=== PATIENT | female | born 1955 | race Caucasian/White ===

== ENCOUNTER → 2019-03-31 08:35 | Outpatient (BNVA) | payer MEDICARE, MEDICAID, SELFPAY | PROVIDERS: Family Provider Family Medicine; Visit Provider Psychiatry & Neurology Psychiatry | DX: F41.0 Panic disorder [episodic paroxysmal anxiety] (principal); F33.42 Major depressive disorder, recurrent, in full remission; F17.210 Nicotine dependence, cigarettes, uncomplicated | CPT/HCPCS: 99213 ==

== ENCOUNTER 2019-05-27 06:00 | Outpatient (CLI) | payer MEDICARE, MEDICAID, SELFPAY ==
--- NOTE | 2019-05-29 12:03 | ONC CON_ITS ---
Dr. Knight New Patient Note Patient: Lisa Nick Unit #: [id number]: 1955 Dicatated By: Bubba Knight M.D.Date of Visit: May 27, 2019 Onc MED New Patient/Consult Referring Physician: Dr. Jordan Cedillo M.D. Chief Complaint: Thick blood. History of Present Illness: This is a 63 year-old woman with elevated hemoglobin/hematocrit levels. She has multiple medical illnesses including hypertension, hyperlipidemia, type 2 diabetes, chronic kidney disease, COPD, GERD, obstructive sleep apnea, chronic migraine, and chronic anxiety. She also has degenerative arthritis and fibromyalgia with chronic pain. She has been seeing Dr. Cedillo for primary care. At her follow-up visit with Dr. Cedillo on 02/11/2019 her CBC showed significantly elevated hemoglobin at 16.6 g with hematocrit 52.3%. The white blood cell count was 9500. The platelet count was in the upper normal range at 404,000. The differential showed 56% neutrophils, 32% lymphocytes, 8% monocytes, 3% eosinophils, and 1% basophils. Her comprehensive metabolic profile showed BUN 15 and creatinine 0.79 mg/dL and total bilirubin 0.2 mg/dL. The SGOT and SGPT were borderline high at 33 and 34 U/L respectively, and the alkaline phosphatase was slightly elevated at 132/104 U/L. Her further laboratory studies on 05/13/2019 included an erythropoietin level in the upper normal range at 17.3 mIU/mL. She says that she has not been feeling very good. She complains that she hurts all the time. For the past 6 months or so she has been having episodes of pain in the upper chest which she says feels like someone sitting on her chest. The pain tends to radiate to the shoulders and sometimes down the left arm. She says her left arm sometimes goes numb. The pain is not necessarily associated with activity. It is sometimes preceded by profuse sweating. He says that for the past 3 to 4 months she has been getting sweats all the time, both during the daytime and at night. She has not had fever. She has limited activity due to shortness of breath and weakness, but she is able to do light work at home. Her ECOG score is 1. She has good appetite. Her weight has been stable. She has shortness of breath and she has nonproductive cough. She has nausea with more severe migraines. Her acid reflux is adequately managed with Nexium. Bowel function has been okay. She had a colonoscopy 6 years ago. She has frequent urination. She has generalized musculoskeletal pain including the neck and shoulders, her entire back, her hands, her legs, and the bottoms of her feet. She has migraines at least 2-3 times a week. She also gets dizzy/lightheaded with the more severe headaches. She has numbness in her hands and arms. She has chronic anxiety. Past Medical History: Her medical history includes anxiety, cervical radiculopathy, chronic kidney disease (stage III), chronic migraine, chronic obstructive pulmonary disease, chronic pain syndrome, degenerative disease of the spine, fibromyalgia, gastroesophageal reflux disease, hyperlipidemia, hypothyroidism, macular degeneration, obstructive sleep apnea, osteopenia, renal hypertension, and type II diabetes. Past Surgical History: Her surgical/procedural history includes bilateral cataract excisions in 2017, right total knee arthroplasty in 2013, laser eye surgery in 2009, cholecystectomy in 1985, completion hysterectomy in 1983, and appendectomy/right oophorectomy in 1972. Medications: Acetaminophen-Codeine 1 (300-15 mg) Tablet Oral t.i.d., clonazePAM 1 (0.5 mg) Tablet Oral b.i.d., Cymbalta 1 (60 mg) Capsule Delayed Release Particles Oral b.i.d., Empagliflozin 1 (10 mg) Tablet Oral daily, Glimepiride 1 (4 mg) Tablet Oral b.i.d., Ibuprofen (800 mg) Tablet Oral t.i.d., Methocarbamol (750 mg) Tablet Oral t.i.d., Propranolol HCl (60 mg) Tablet Oral b.i.d. Allergies: Abilify, Amitriptyline HCl, Baclofen, Doxycycline Hyclate, Ketorolac Tromethamine, Lyrica, Naproxen Sodium, Percocet, and TEGretol. Social History: Ms. Nick is . She is a daily smoker. She is a former drinker. She is a retired RN. She has smoked since age 9, up to 1 pack of cigarettes daily. She cut down a few years ago and she currently smokes 1/2 pack per day. She has had some alcohol use in the past, but never heavy. She quit drinking more than 20 years ago. Family History: Father of lung cancer at age 72. Mother of neuroendocrine lung cancer at age 68. Her mother also had heart disease and both had diabetes. A brother in an accident at age 42. One other brother is still living and has known cerebral aneurysm. Review Of Symptoms: Constitutional - Her energy level is overall okay, but she she tried easily. She is able to do light housework and she does some exercises as well as dancing. Appetite is good and weight is stable. No fever or chills. She has hot flashes. She has frequent sweating episodes that happen during the day and night. She states this has been present for 3 months. ECOG score is 0, Eyes - She has macular degeneration. She has lost vision in her right eye and she says the left eye vision is getting worse, ENMT - No sinus congestion/drainage. She has a sore mouth and sore throat. No difficulty swallowing, Hematologic/Lymphatic - She bruises easily, Respiratory - She has shortness of breath with activity. She has a dry cough. No pleuritic pain or hemoptysis, Cardiovascular - She has pain in the upper chest which feels like someone is sitting on her chest. Pain sometimes goes to her shoulders and sometimes down her left arm. No palpitations, Gastrointestinal - She has some nausea that's typically associated with her migraines. No vomiting. She has heartburn that is well controlled with Nexium. No diarrhea or constipation. No blood in the stool or black stools, Genitourinary (F) - No dysuria or hematuria. She has urinary frequency. No urgency or incontinence, Musculoskeletal - She has pain in her chest wall which is chronic for her. She was evaluated for this recently, diagnosed with intercostal pain. She is taking 800mg Ibuprofen which helps. She also has chronic arthritic pain in her knees, shoulder, hands, neck and back, Integumentary - No skin complications, Neurologic - She has migraine headaches 2-3 times weekly that's accompanied by dizziness and photophobia. She has numbness and tingling in her hands and armsthat is constant, Psychiatric - She has constant anxiety and depression that is related to her chronic pain and activity restrictions. She is sleeping OK. Vital Signs: Performed on May 27, 2019 09:26: 8, 37.20 (HIGH), 1.97 sq.m, 63 in, 95 % (LOW), 73 /min, 18 /min, 158/90 mm(hg) (HIGH), 97.6 F (LOW), and 210 lbs (HIGH). Physical Examination: Constitutional - She does not appear acutely ill. She has limited mobility, Eyes - Sclerae nonicteric. Conjunctivae clear, ENMT - Mouth is dry. There are no other lesions noted in the oral cavity, Neck - No mass or thyromegaly, Hematologic/Lymphatic - No cervical, clavicular, or axillary adenopathy, Respiratory - Lungs show diminished air movement and slightly coarse breath sounds bilaterally. There is some slight expiratory wheezing anteriorly, Cardiovascular - Heart rhythm is regular. There is no murmur, gallop, or rub noted, Chest - There is significant chest wall tenderness in the sternal area, Abdomen - Distended. Liver and spleen are not enlarged. There is no abdominal mass or ascites noted and there is no inguinal adenopathy, Back/Spine - There is tenderness in the neck and down the entire spine, Extremities - No edema. Dorsalis pedis pulses are palpable bilaterally, Integumentary - No rashes. No suspicious skin lesions noted, Neurologic - No focal neurologic deficits noted. Impression: 1. Patient with elevated hemoglobin/hematocrit levels. This is most likely secondary polycythemia due to smoking/COPD. 2. She has shortness of breath and weakness, and she also has been having frequent diaphoresis and episodes of chest pain. It is uncertain to what extent any of this may be due to the elevated blood count. Her other medical illnesses include: 3. Hypertension. 4. Hyperlipidemia. 5. Type 2 diabetes. 6. Chronic kidney disease. 7. GERD. 8. Hypothyroidism. 9. Osteopenia. 10. Obstructive sleep apnea. 11. Degenerative arthritis/degenerative disease of the spine and fibromyalgia. She has associated chronic pain syndrome. 12. Chronic migraine. 13. Macular degeneration. 14. Chronic anxiety. Plan: The laboratory findings were reviewed with the patient. We discussed the clinical implications. The probability is very high that she has secondary polycythemia. It is uncertain to what extent it may be symptomatic, but with her hematocrit level greater than 50%, it would be reasonable to give her a trial of phlebotomy to see if she may have symptomatic benefit. I would first like to repeat her CBC and also check a JAK2 gene mutation study. If that is confirmed to be negative, I will arrange for her to start phlebotomies on a trial basis. I will tentatively plan a follow-up visit in 1 month. We also discussed the fact that it is imperative for her to stop smoking. She indicates that she is willing to try nicotine patch, I will see if I can get that available for her. Signed By: Bubba Knight M.D. <<Signature on File>>
== END 2019-05-27 06:01 | disposition home or self-care (01) ==
LOC: ONCMED 11:45
PROVIDERS: Family Provider Family Medicine; Referring Provider Family Medicine; Visit Provider Internal Medicine Medical Oncology
DX: D75.1 Secondary polycythemia (principal); E11.22 Type 2 diabetes mellitus with diabetic chronic kidney disease; I12.9 Hypertensive chronic kidney disease with stage 1 through stage 4 chronic kidney disease, or unspecified chronic kidney disease; N18.3 Chronic kidney disease, stage 3 (moderate); E78.5 Hyperlipidemia, unspecified; J44.9 Chronic obstructive pulmonary disease, unspecified; K21.9 Gastro-esophageal reflux disease without esophagitis; G47.33 Obstructive sleep apnea (adult) (pediatric); G43.709 Chronic migraine without aura, not intractable, without status migrainosus; F41.9 Anxiety disorder, unspecified; M19.90 Unspecified osteoarthritis, unspecified site; M79.7 Fibromyalgia; M54.12 Radiculopathy, cervical region; G89.4 Chronic pain syndrome; E03.9 Hypothyroidism, unspecified; H35.30 Unspecified macular degeneration; F17.210 Nicotine dependence, cigarettes, uncomplicated; Z79.84 Long term (current) use of oral hypoglycemic drugs; Z96.651 Presence of right artificial knee joint
CPT/HCPCS: 99205

== ENCOUNTER 2019-06-19 11:25 | Outpatient (CLI) | payer MEDICARE, MEDICAID, SELFPAY ==
[2019-06-19 14:57] LABS: Basophils # 0.1 10^3/uL (0.0-0.1); Basophils % 0.6 %; Eosinophils # 0.3 10^3/uL (0.0-0.8); Eosinophils % 2.4 %; Hematocrit 48.4 % (37.0-47.0); Hemoglobin 15.2 g/dL (11.5-15.3); Lymphocytes # 3.8 10^3/uL (0.8-4.8); Lymphocytes % 35.3 %; Mean Corpuscular HGB Conc 31.4 g/dL (30.0-36.0); Mean Corpuscular Hemoglobin 29.3 pg (28.0-34.0); Mean Corpuscular Volume 93.3 fL (81-99); Mean Platelet Volume 9.6 fL (7.4-10.4); Monocytes # 0.8 10^3/uL (0.2-0.9); Monocytes % 7.5 %; Neutrophils # 5.7 10^3/uL (1.8-7.7); Neutrophils % 52.9 %; Nucleated Red Blood Cells % 0 %; Platelet Count 398 10^3/cmm (130-400); Red Blood Count 5.19 10^6/uL (4.1-5.3); White Blood Count 10.7 10^3/uL (4.0-10.0)
== END 2019-06-19 11:26 | disposition home or self-care (01) ==
LOC: ONCMED 15:29
PROVIDERS: Family Provider Family Medicine; PCP Family Medicine; Visit Provider Internal Medicine Medical Oncology
DX: D75.1 Secondary polycythemia (principal)
CPT/HCPCS: 36415; 85025

== ENCOUNTER 2019-06-20 06:52 | Outpatient (CLI) | payer MEDICARE, MEDICAID, SELFPAY ==
--- NOTE | 2019-06-20 14:43 | ONC FU_ITS ---
Dr. Knight Patient Follow-Up Note Patient: Lisa Nick Unit #: [id number]: 1955 Dicatated By: Bubba Knight M.D.Date of Visit:Jun 20, 2019 Onc Med Follow-up/Prog Note Chief Complaint: Polycythemia. History of Present Illness: This is a 63 year-old woman with secondary polycythemia. At her follow-up visit with Dr. Cedillo on 02/11/2019 her CBC showed significantly elevated hemoglobin at 16.6 g with hematocrit 52.3%. The white blood cell count was 9500. The platelet count was in the upper normal range at 404,000. The differential showed 56% neutrophils, 32% lymphocytes, 8% monocytes, 3% eosinophils, and 1% basophils. Her comprehensive metabolic profile showed BUN 15 and creatinine 0.79 mg/dL and total bilirubin 0.2 mg/dL. The SGOT and SGPT were borderline high at 33 and 34 U/L respectively, and the alkaline phosphatase was slightly elevated at 132/104 U/L. Her further laboratory studies on 05/13/2019 included an erythropoietin level in the upper normal range at 17.3 mIU/mL. I had seen her initially on 05/27/2019. Her repeat CBC at that time showed just mildly elevated hemoglobin/hematocrit levels at 13.0 g and 48.5%. The white blood cell count was 9900. The platelet count was 378,000. Comprehensive metabolic profile again showed slightly elevated liver enzymes. LDH was normal at 180 U/L. The JAK2 V617F and the JAK2 exon 12 mutations were not identified. Her other medical illnesses include hypertension, hyperlipidemia, type 2 diabetes, chronic kidney disease, COPD, GERD, hypothyroidism, obstructive sleep apnea, osteopenia, macular degeneration, chronic migraine, and chronic anxiety. She also has degenerative arthritis and fibromyalgia with chronic pain. She has a history of smoking since age 9, up to 1 pack of cigarettes daily. She had cut down a few years ago, to 1/2 pack/day. She is trying to quit. She is seen for a follow-up visit by telehealth. She has been feeling better generally since my visit with her last month. She has not had good energy, but there has been some improvement in her activity tolerance. She has been doing light work and she has been exercising some. Her appetite is good. She has not had fever. She does report having a lot of sweating. She had seen Dr. Cedillo yesterday, and she is now getting treatment for thrush. She has some shortness of breath, but her breathing lately has been pretty good. She has nonproductive cough. She does not complain of chest pain. Her acid reflux is managed adequately with Nexium. She has no other GI or complaints. Her pain is about the same. She has headaches. She sometimes has dizziness. She has numbness in her arms and hands. She is seeing a neurologist. Medications: Acetaminophen-Codeine 1 (300-15 mg) Tablet Oral t.i.d., clonazePAM 1 (0.5 mg) Tablet Oral b.i.d., Cymbalta 1 (60 mg) Capsule Delayed Release Particles Oral b.i.d., Empagliflozin 1 (10 mg) Tablet Oral daily, Glimepiride 1 (4 mg) Tablet Oral b.i.d., Ibuprofen (800 mg) Tablet Oral t.i.d., Methocarbamol (750 mg) Tablet Oral t.i.d., Propranolol HCl (60 mg) Tablet Oral b.i.d. Allergies: Abilify, Amitriptyline HCl, Baclofen, Doxycycline Hyclate, Ketorolac Tromethamine, Lyrica, Naproxen Sodium, Percocet, and TEGretol. Review of Systems: Constitutional - She is feeling somewhat better, but still having low energy. She is able to do light housework. Her appetite is good and weight is stable. No fever or chills. She has a lot of sweating. ECOG score is 1, ENMT - She has sinus congestion/drainage. She has a sore mouth and throat. She was evaluated by Dr. Cedillo yesterday and she is being treated for thrush. No difficulty swallowing, Hematologic/Lymphatic - She bruises easily, Respiratory - She has some shortness of breath, but her breathing lately has been pretty good. She has a dry cough. No pleuritic pain or hemoptysis, Cardiovascular - No angina pain. No palpitations, Gastrointestinal - No nausea or vomiting. She has heartburn with acid reflux that is adequately managed with Nexium. No diarrhea or constipation. No blood in the stool or black stools, Genitourinary (F) - No dysuria or hematuria. No urinary frequency. No urgency or incontinence, Musculoskeletal - She has back and she has a lot of arthritis. She is managing it with Tylenol #3 and ibuprofen, Integumentary - No skin complications, Neurologic - She has chronic migraines. She has dizziness. She has persistant numbness and tingling in her arms and hands. She is seeing Dr. Malcolm with Neurology for this, Psychiatric - No anxiety or depression. No insomnia. Physical Examination: Constitutional - She does not appear acutely ill. Lab/Imaging: Her CBC from 06/19/2019 showed hemoglobin 15.2 g and hematocrit 48.4%. The white blood cell count was 10,700 and the platelet count was 398,000. Impression: 1. Patient with elevated hemoglobin/hematocrit levels. Her laboratory studies and clinical findings are consistent with secondary polycythemia. 2. During followup her blood counts have been just borderline high, and thus far phlebotomy has not been indicated. Her other medical illnesses include: 3. Hypertension. 4. Hyperlipidemia. 5. Type 2 diabetes. 6. Chronic kidney disease. 7. GERD. 8. Hypothyroidism. 9. Osteopenia. 10. Obstructive sleep apnea. 11. Degenerative arthritis/degenerative disease of the spine and fibromyalgia. She has associated chronic pain syndrome. 12. Chronic migraine. 13. Macular degeneration. 14. Chronic anxiety. Plan: As her recent blood counts have been stable, she can just be followed on observation/expectant management. I again emphasized how important it is for her to stop smoking. She will continue her regular follow-up with Dr. Cedillo. I will see her again in 6 months. Signed By: Bubba Knight M.D. <<Signature on File>>
== END 2019-06-20 06:53 | disposition home or self-care (01) ==
LOC: ONCMED 06:54
PROVIDERS: Family Provider Family Medicine; PCP Family Medicine; Visit Provider Internal Medicine Medical Oncology
DX: D75.1 Secondary polycythemia (principal); E11.22 Type 2 diabetes mellitus with diabetic chronic kidney disease; I12.9 Hypertensive chronic kidney disease with stage 1 through stage 4 chronic kidney disease, or unspecified chronic kidney disease; N18.9 Chronic kidney disease, unspecified; E78.5 Hyperlipidemia, unspecified; J44.9 Chronic obstructive pulmonary disease, unspecified; K21.9 Gastro-esophageal reflux disease without esophagitis; E03.9 Hypothyroidism, unspecified; G47.33 Obstructive sleep apnea (adult) (pediatric); M85.80 Other specified disorders of bone density and structure, unspecified site; H35.30 Unspecified macular degeneration; G43.709 Chronic migraine without aura, not intractable, without status migrainosus; F41.9 Anxiety disorder, unspecified; M19.90 Unspecified osteoarthritis, unspecified site; M79.7 Fibromyalgia; G89.29 Other chronic pain; F17.210 Nicotine dependence, cigarettes, uncomplicated; Z79.899 Other long term (current) drug therapy; Z79.84 Long term (current) use of oral hypoglycemic drugs
CPT/HCPCS: 99214

== ENCOUNTER → 2019-06-27 07:32 | Outpatient (BNVA) | payer MEDICARE, MEDICAID, SELFPAY | PROVIDERS: Family Provider Family Medicine; PCP Family Medicine; Visit Provider Psychiatry & Neurology Psychiatry | DX: F41.0 Panic disorder [episodic paroxysmal anxiety] (principal); F33.42 Major depressive disorder, recurrent, in full remission; F17.210 Nicotine dependence, cigarettes, uncomplicated | CPT/HCPCS: 99213 ==

== ENCOUNTER → 2019-09-19 09:00 | Outpatient (BNVA) | payer MEDICARE, MEDICAID, SELFPAY | PROVIDERS: Family Provider Family Medicine; PCP Family Medicine; Visit Provider Psychiatry & Neurology Psychiatry | DX: F33.42 Major depressive disorder, recurrent, in full remission (principal); F41.0 Panic disorder [episodic paroxysmal anxiety] | CPT/HCPCS: 99213 ==

== ENCOUNTER → 2019-12-12 07:37 | Outpatient (BNVA) | payer MEDICARE, MEDICAID, SELFPAY | PROVIDERS: Family Provider Family Medicine; PCP Family Medicine; Visit Provider Psychiatry & Neurology Psychiatry | DX: F33.42 Major depressive disorder, recurrent, in full remission (principal); F41.0 Panic disorder [episodic paroxysmal anxiety]; F17.210 Nicotine dependence, cigarettes, uncomplicated | CPT/HCPCS: 99213 ==

== ENCOUNTER 2019-12-30 09:14 | Outpatient (CLI) | payer MEDICARE, MEDICAID, SELFPAY ==
--- NOTE | 2020-01-02 17:21 | ONC FU_ITS ---
Dr. Knight Patient Follow-Up Note Patient: Lisa Nick Unit #: [id number]: 1955 Dicatated By: Bubba Knight M.D.Date of Visit:Dec 30, 2019 Onc Med Follow-up/Prog Note Chief Complaint: Polycythemia. History of Present Illness: This is a 64 year-old woman with secondary polycythemia. At her follow-up visit with Dr. Cedillo on 02/11/2019 her CBC showed significantly elevated hemoglobin at 16.6 g with hematocrit 52.3%. The white blood cell count was 9500. The platelet count was in the upper normal range at 404,000. The differential showed 56% neutrophils, 32% lymphocytes, 8% monocytes, 3% eosinophils, and 1% basophils. Her comprehensive metabolic profile showed BUN 15 and creatinine 0.79 mg/dL and total bilirubin 0.2 mg/dL. The SGOT and SGPT were borderline high at 33 and 34 U/L respectively, and the alkaline phosphatase was slightly elevated at 132/104 U/L. Her further laboratory studies on 05/13/2019 included an erythropoietin level in the upper normal range at 17.3 mIU/mL. I had seen her initially on 05/27/2019. Her repeat CBC at that time showed just mildly elevated hemoglobin/hematocrit levels at 13.0 g and 48.5%. The white blood cell count was 9900. The platelet count was 378,000. Comprehensive metabolic profile again showed slightly elevated liver enzymes. LDH was normal at 180 U/L. The JAK2 V617F and the JAK2 exon 12 mutations were not identified. As her evaluation was consistent with secondary polycythemia and her blood counts were just mildly elevated, I had just recommended observation/expectant management along with smoking cessation. Her other medical illnesses include hypertension, hyperlipidemia, type 2 diabetes, chronic kidney disease, COPD, GERD, hypothyroidism, obstructive sleep apnea, osteopenia, macular degeneration, chronic migraine, and chronic anxiety. She also has degenerative arthritis and fibromyalgia with chronic pain. She has a history of smoking since age 9, up to 1 pack of cigarettes daily. She had cut down a few years ago, to 1/2 pack/day. She is seen for a follow-up visit. She has not been feeling very good generally. She thinks she has been dehydrated, though she has been drinking a lot of water. Her energy is not been too good, but she is able to do light work. ECOG score is 1. She has good appetite. She has not had fever. She sometimes has sweating when her blood sugar is high. She occasionally has sore throat. She has nonproductive cough. She has shortness of breath, and she thinks her breathing is getting worse. She has now cut down to just 5 cigarettes/day. She has had a lot of soreness and pain across her chest, but that does seem to be positional. She has occasional nausea. Her acid reflux is adequately managed with Nexium. Bowel and bladder function have been okay. She complains that she hurts constantly, mainly in the knees and shoulders. She also has pain in her neck and back. She has migraine headaches. She sometimes has lightheadedness. She has numbness/tingling in her arms and hands. Medications: Acetaminophen-Codeine 1 (300-15 mg) Tablet Oral t.i.d., clonazePAM 1 (0.5 mg) Tablet Oral b.i.d., Cymbalta 1 (60 mg) Capsule Delayed Release Particles Oral b.i.d., Empagliflozin 1 (10 mg) Tablet Oral daily, Glimepiride 1 (4 mg) Tablet Oral b.i.d., Ibuprofen (800 mg) Tablet Oral t.i.d., Methocarbamol (750 mg) Tablet Oral t.i.d., Propranolol HCl (60 mg) Tablet Oral b.i.d. Allergies: Abilify, Amitriptyline HCl, Baclofen, Doxycycline Hyclate, Ketorolac Tromethamine, Lyrica, Naproxen Sodium, Percocet, and TEGretol. Review of Systems: Constitutional - Her energy is low. She has been doing some light exercising. She is able to do light housework. Her appetite is good and her weight is up about 10 pounds. No fever, night sweats, or hot flashes. ECOG score is 1, ENMT - No sinus congestion/drainage. She has dry mouth. She sometimes has sore throat. No difficulty swallowing, Hematologic/Lymphatic - She has easy bruising, Respiratory - She has shortness of breath, and she feels that her breathing is getting worse. She has a non-productive cough. She is down to smoking 5-6 cigarettes a day. No pleuritic pain or hemoptysis, Cardiovascular - She has intermittent chest pain. It tends to be positional. No palpitations, Gastrointestinal - She sometimes has nausea after meals. No vomiting. Her heartburn is poorly controlled with Nexium. No diarrhea or constipation. No blood in the stool or black stools, Genitourinary (F) - No dysuria or hematuria. No urinary frequency. No urgency or incontinence, Musculoskeletal - She has constant arthritis pain in her knees ans shoulders. She also has neck and back pain, Integumentary - No skin complications, Neurologic - She has migraine headaches. She has lightheadedness. She has numbness and tingling in her left arm and hand. No other focal neurologic symptoms, Psychiatric - She has anxiety. No depression. No insomnia. Vital Signs: Performed on Dec 30, 2019 09:16 Height - 63.00 in Weight - 220 lbs (HIGH) BSA - 2.01 sq.m BMI - 38.97 (HIGH) Temperature - 98.8 F Pulse - 88 /min Respiration - 17 /min BP - 136/68 mm(hg) O2 Sat - 97 % Pain - 7 Physical Examination: Constitutional - She looks pretty good generally, Eyes - Sclerae nonicteric. Conjunctivae clear, ENMT - Mouth is very dry. There are no lesions noted in the oral cavity, Hematologic/Lymphatic - No cervical, clavicular, or axillary adenopathy, Respiratory - Lungs show diminished air movement bilaterally. There is slight wheezing anteriorly, Cardiovascular - Heart rhythm is regular. There is no murmur, gallop, or rub noted, Abdomen - Soft. Liver and spleen are not enlarged. There is no abdominal mass or ascites noted and there is no inguinal adenopathy, Extremities - No edema, Neurologic - No focal neurologic deficits noted. Lab/Imaging: Test performed on Dec 03, 2019 09:13 TSH 2.95 uU/mL C-Reactive Protein (mg/L) 13.0 mg/L Glucose 101 mg/dL BUN 14 mg/dL Creatinine 0.84 mg/dL Cr Clearance (Est) 106.59 mL/min Sodium 134 mmol/L Potassium 5.0 mmol/L Chloride 99 mmol/L CO2 25 mmol/L Calcium 9.6 mg/dL Protein, Total 6.5 g/dL Albumin 4.3 g/dL Bilirubin, Total 0.2 mg/dL Alkaline Phosphatase 106 IU/L AST (SGOT) 28 IU/L ALT (SGPT) 34 IU/L Hemoglobin A1C 7.7 % WBC 11.6 10^9/L RBC 5.24 10^12/L HGB 14.5 g/dL HCT 46.4 % MCV 88.5 fl MCH 27.7 pg MCHC 31.3 g/dL RDW 16.8 % Platelet Count 421 10^9/L MPV 9.5 fL Neutrophils (Gran) 6.95 10^9/L Lymphocytes 3.33 10^9/L Monocytes 1.00 10^9/L Eosinophils 0.17 10^9/L Basophils 0.08 10^9/L Manual Lymphocytes 29 % Manual Monocytes 9 % Manual Eosinophils 2 % Manual Basophils 1 % Impression: 1. Patient with elevated hemoglobin/hematocrit levels. Her laboratory studies and clinical findings are consistent with secondary polycythemia. 2. During followup her blood counts have been just borderline high, and thus far phlebotomy has not been indicated. Her other medical illnesses include: 3. Hypertension. 4. Hyperlipidemia. 5. Type 2 diabetes. 6. Chronic kidney disease. 7. GERD. 8. Hypothyroidism. 9. Osteopenia. 10. Obstructive sleep apnea. 11. Degenerative arthritis/degenerative disease of the spine and fibromyalgia. She has associated chronic pain syndrome. 12. Chronic migraine. 13. Macular degeneration. 14. Chronic anxiety. As noted, her laboratory studies are consistent with secondary polycythemia. She has been able to significantly reduce her smoking, and she is trying to quit. Thus far her hemoglobin/hematocrit levels have just been borderline high to mildly elevated, and I really do not think that phlebotomy is indicated. Plan: She can be followed on observation/expectant management. I will see her again in 6 months. In the meantime, she also will continue her regular follow-up with Dr. Cedillo. Signed By: Bubba Knight M.D. <<Signature on File>>
== END 2019-12-30 09:15 | disposition home or self-care (01) ==
LOC: ONCMED 09:15
PROVIDERS: Family Provider Family Medicine; PCP Family Medicine; Visit Provider Internal Medicine Medical Oncology
DX: D75.1 Secondary polycythemia (principal); I10 Essential (primary) hypertension; E78.5 Hyperlipidemia, unspecified; E11.22 Type 2 diabetes mellitus with diabetic chronic kidney disease; N18.9 Chronic kidney disease, unspecified; K21.9 Gastro-esophageal reflux disease without esophagitis; E03.9 Hypothyroidism, unspecified; M85.80 Other specified disorders of bone density and structure, unspecified site; M47.9 Spondylosis, unspecified; M79.7 Fibromyalgia; G89.4 Chronic pain syndrome; G43.909 Migraine, unspecified, not intractable, without status migrainosus; H35.30 Unspecified macular degeneration; F41.9 Anxiety disorder, unspecified
CPT/HCPCS: G0463

== ENCOUNTER → 2020-03-11 07:33 | Outpatient (BNVA) | payer MEDICARE, MEDICAID, SELFPAY | PROVIDERS: Family Provider Family Medicine; PCP Family Medicine; Visit Provider Psychiatry & Neurology Psychiatry | DX: F33.42 Major depressive disorder, recurrent, in full remission (principal); F41.0 Panic disorder [episodic paroxysmal anxiety]; F17.210 Nicotine dependence, cigarettes, uncomplicated | CPT/HCPCS: 99213 ==

== ENCOUNTER → 2020-04-08 08:17 | Outpatient (BNVA) | payer MEDICARE, MEDICAID, SELFPAY | PROVIDERS: Family Provider Family Medicine; PCP Family Medicine; Visit Provider Psychiatry & Neurology Psychiatry | DX: F33.42 Major depressive disorder, recurrent, in full remission (principal); F41.0 Panic disorder [episodic paroxysmal anxiety]; F17.210 Nicotine dependence, cigarettes, uncomplicated | CPT/HCPCS: 99214 ==

== ENCOUNTER → 2020-05-06 08:02 | Outpatient (BNVA) | payer MEDICARE, MEDICAID, SELFPAY | PROVIDERS: Family Provider Family Medicine; PCP Family Medicine; Visit Provider Psychiatry & Neurology Psychiatry | DX: F33.42 Major depressive disorder, recurrent, in full remission (principal); F41.0 Panic disorder [episodic paroxysmal anxiety]; F17.210 Nicotine dependence, cigarettes, uncomplicated; Z87.891 Personal history of nicotine dependence | CPT/HCPCS: 99214 ==

== ENCOUNTER → 2020-06-03 07:23 | Outpatient (BNVA) | payer MEDICARE, MEDICAID, SELFPAY | PROVIDERS: Family Provider Family Medicine; PCP Family Medicine; Visit Provider Psychiatry & Neurology Psychiatry | DX: F33.42 Major depressive disorder, recurrent, in full remission (principal); F41.0 Panic disorder [episodic paroxysmal anxiety]; F17.210 Nicotine dependence, cigarettes, uncomplicated; Z87.891 Personal history of nicotine dependence | CPT/HCPCS: 99213 ==

== ENCOUNTER → 2020-07-15 07:54 | Outpatient (BNVA) | payer MEDICARE, MEDICAID, SELFPAY | PROVIDERS: Family Provider Family Medicine; PCP Family Medicine; Visit Provider Psychiatry & Neurology Psychiatry | DX: F33.42 Major depressive disorder, recurrent, in full remission (principal); F41.0 Panic disorder [episodic paroxysmal anxiety]; J44.9 Chronic obstructive pulmonary disease, unspecified; F17.210 Nicotine dependence, cigarettes, uncomplicated | CPT/HCPCS: 99214 ==

== ENCOUNTER 2020-07-27 09:30 | Outpatient (CLI) | payer MEDICARE, MEDICAID, SELFPAY ==
--- NOTE | 2020-07-28 08:46 | ONC FU_ITS ---
Dr. Knight Patient Follow-Up Note Patient: Lisa Nick Unit #: [id number]: 1955 Dicatated By: Bubba Knight M.D.Date of Visit:July 27, 2020 Onc Med Follow-up/Prog Note Chief Complaint: Polycythemia. History of Present Illness: This is a 64 year-old woman with secondary polycythemia. At her follow-up visit with Dr. Cedillo on 02/11/2019 her CBC showed significantly elevated hemoglobin at 16.6 g with hematocrit 52.3%. The white blood cell count was 9500. The platelet count was in the upper normal range at 404,000. The differential showed 56% neutrophils, 32% lymphocytes, 8% monocytes, 3% eosinophils, and 1% basophils. Her comprehensive metabolic profile showed BUN 15 and creatinine 0.79 mg/dL and total bilirubin 0.2 mg/dL. The SGOT and SGPT were borderline high at 33 and 34 U/L respectively, and the alkaline phosphatase was slightly elevated at 132/104 U/L. Her further laboratory studies on 05/13/2019 included an erythropoietin level in the upper normal range at 17.3 mIU/mL. I had seen her initially on 05/27/2019. Her repeat CBC at that time showed just mildly elevated hemoglobin/hematocrit levels at 13.0 g and 48.5%. The white blood cell count was 9900. The platelet count was 378,000. Comprehensive metabolic profile again showed slightly elevated liver enzymes. LDH was normal at 180 U/L. The JAK2 V617F and the JAK2 exon 12 mutations were not detected. As her evaluation was consistent with secondary polycythemia and her blood counts were just mildly elevated, I had just recommended observation/expectant management along with smoking cessation. Her other medical illnesses include hypertension, hyperlipidemia, type 2 diabetes, chronic kidney disease, COPD, GERD, hypothyroidism, obstructive sleep apnea, osteopenia, macular degeneration, chronic migraine, and chronic anxiety. She also has degenerative arthritis and fibromyalgia with chronic pain. She has a history of smoking since age 9, up to 1 pack of cigarettes daily. She had cut down a few years ago, to 1/2 pack/day. She is seen for a follow-up visit. She has been feeling about the same. She has limited activity due to shortness of breath and also due to her chronic pain. She is able to do some walking. Her ECOG score is 2. Her appetite is been okay. She has had some intentional weight loss. She has sinus drainage with sore throat. She has some cough, productive of yellowish sputum. She is short of breath with any activity. She had been able to quit smoking for 1-1/2 months, but towards the end of May she started again when her brother was admitted to the hospital. She is now smoking about 6 cigarettes/day. She has not been having chest pain. She has been having acid reflux despite taking Nexium. She has no other GI or complaints. She has pain in her back and legs, which is about the same. She has chronic migraine, but she says her headaches have calmed down somewhat. She has some orthostatic lightheadedness. She has some numbness/tingling in her right arm. She has no other focal neurologic symptoms. Medications: Acetaminophen-Codeine 1 (300-15 mg) Tablet Oral t.i.d., clonazePAM 1 (0.5 mg) Tablet Oral b.i.d., Cymbalta 1 (60 mg) Capsule Delayed Release Particles Oral b.i.d., Empagliflozin 1 (10 mg) Tablet Oral daily, Glimepiride 1 (4 mg) Tablet Oral b.i.d., Ibuprofen (800 mg) Tablet Oral t.i.d., Methocarbamol (750 mg) Tablet Oral t.i.d., Pantoprazole Sodium 1 (40 mg) Tablet, enteric coated Oral b.i.d., Propranolol HCl (60 mg) Tablet Oral b.i.d. Allergies: Abilify, Amitriptyline HCl, Baclofen, Doxycycline Hyclate, Ketorolac Tromethamine, Lyrica, Naproxen Sodium, Percocet, and TEGretol. Vital Signs: Performed on July 27, 2020 09:21 Height - 63.00 in Weight - 214 lbs (LOW) BSA - 1.99 sq.m BMI - 37.91 (HIGH) Temperature - 97.0 F (LOW) Pulse - 93 /min Respiration - 19 /min BP - 110/70 mm(hg) O2 Sat - 96 % Pain - 6 Physical Examination: Constitutional - She looks pretty good generally, Eyes - Sclerae nonicteric. Conjunctivae clear, ENMT - Mouth is dry. There are no lesions noted in the oral cavity, Hematologic/Lymphatic - No cervical, clavicular, or axillary adenopathy, Respiratory - Lungs show diminished air movement bilaterally. There is slight expiratory wheezing, Cardiovascular - Heart rhythm is regular. There is no murmur, gallop, or rub noted, Abdomen - Soft. Liver and spleen are not enlarged. There is no abdominal mass or ascites noted and there is no inguinal adenopathy, Extremities - No edema. Dorsalis pedis pulses are palpable bilaterally, Neurologic - No focal neurologic deficits noted. Lab/Imaging: Test performed on July 27, 2020 09:58 WBC 11.8 10^9/L RBC 4.54 10^12/L HGB 11.8 g/dL HCT 38.9 % MCV 85.7 fl MCH 26.0 pg MCHC 30.3 g/dL RDW 16.2 % Platelet Count 456 10^9/L MPV 8.4 fL Neutrophils (Gran) 7.17 10^9/L Lymphocytes 3.24 10^9/L Monocytes 0.96 10^9/L Eosinophils 0.23 10^9/L Basophils 0.11 10^9/L Manual Lymphocytes 28 % Manual Monocytes 8 % Manual Eosinophils 2 % Manual Basophils 1 % Problem List: 1. Patient with elevated hemoglobin/hematocrit levels. Her laboratory studies and clinical findings are consistent with secondary polycythemia. 2. COPD. 3. Hypertension. 4. Hyperlipidemia. 5. Type 2 diabetes. 6. Chronic kidney disease. 7. GERD. 8. Hypothyroidism. 9. Osteopenia. 10. Obstructive sleep apnea. 11. Degenerative arthritis/degenerative disease of the spine and fibromyalgia. She has associated chronic pain syndrome. 12. Chronic migraine. 13. Macular degeneration. 14. Chronic anxiety. Problems Addressed with this Encounter and Plan: Patient with elevated hemoglobin/hematocrit levels. Her laboratory studies and clinical findings were consistent with secondary polycythemia. During followup her blood counts had been just borderline high. As such, she was followed expectantly, as there was no indication for phlebotomy. During follow-up she has continued to have shortness of breath and very limited activity tolerance. She has now become mildly anemic, and based on her red cell indices I suspect she is iron deficient. I will check serum iron studies and she will have further evaluation as indicated. Signed By: Bubba Knight M.D. <<Signature on File>>
== END 2020-07-27 09:31 | disposition home or self-care (01) ==
PROVIDERS: Family Provider Family Medicine; PCP Family Medicine; Visit Provider Internal Medicine Medical Oncology
DX: R71.8 Other abnormality of red blood cells (principal); J44.9 Chronic obstructive pulmonary disease, unspecified; I12.9 Hypertensive chronic kidney disease with stage 1 through stage 4 chronic kidney disease, or unspecified chronic kidney disease; E11.22 Type 2 diabetes mellitus with diabetic chronic kidney disease; N18.9 Chronic kidney disease, unspecified; E78.5 Hyperlipidemia, unspecified
CPT/HCPCS: 99214

== ENCOUNTER → 2020-07-29 07:49 | Outpatient (BNVA) | payer MEDICARE, MEDICAID, SELFPAY | PROVIDERS: Family Provider Family Medicine; PCP Family Medicine; Visit Provider Psychiatry & Neurology Psychiatry | DX: F33.42 Major depressive disorder, recurrent, in full remission (principal); F41.0 Panic disorder [episodic paroxysmal anxiety]; J44.9 Chronic obstructive pulmonary disease, unspecified; F17.210 Nicotine dependence, cigarettes, uncomplicated | CPT/HCPCS: 99214 ==

== ENCOUNTER → 2020-09-16 07:17 | Outpatient (BNVA) | payer MEDICARE, MEDICAID, SELFPAY | PROVIDERS: Family Provider Family Medicine; PCP Family Medicine; Visit Provider Psychiatry & Neurology Psychiatry | DX: F33.42 Major depressive disorder, recurrent, in full remission (principal); F41.0 Panic disorder [episodic paroxysmal anxiety]; F17.210 Nicotine dependence, cigarettes, uncomplicated | CPT/HCPCS: 99214 ==

== ENCOUNTER → 2020-12-13 07:19 | Outpatient (BNVA) | payer MEDICARE, MEDICAID, SELFPAY | PROVIDERS: Family Provider Family Medicine; PCP Family Medicine; Visit Provider Psychiatry & Neurology Psychiatry | DX: F33.42 Major depressive disorder, recurrent, in full remission (principal); F41.0 Panic disorder [episodic paroxysmal anxiety]; F17.210 Nicotine dependence, cigarettes, uncomplicated | CPT/HCPCS: 99214 ==

== ENCOUNTER 2021-02-16 10:19 | Outpatient (CLI) | payer MEDICARE, MEDICAID, SELFPAY ==
[2021-02-16 12:40] LABS: Basophils # 0.1 10^3/uL (0.0-0.1); Basophils % 1.2 %; Eosinophils # 0.2 10^3/uL (0.0-0.8); Eosinophils % 1.9 %; Hematocrit 44.2 % (37.0-47.0); Hemoglobin 12.6 g/dL (11.5-15.3); Lymphocytes # 3.1 10^3/uL (0.8-4.8); Lymphocytes % 28.1 %; Mean Corpuscular HGB Conc 28.5 g/dL (30.0-36.0); Mean Corpuscular Hemoglobin 21.4 pg (28.0-34.0); Mean Corpuscular Volume 74.9 fl (81-99); Mean Platelet Volume 9.2 fL (7.4-10.4); Monocytes % 9.3 %; Neutrophils # 6.49 10^3/uL (1.8-7.7); Neutrophils % 58.7 %; Nucleated Red Blood Cells % 0 %; Platelet Count 460 10^3/cmm (130-400); White Blood Count 11.1 10^3/uL (4.0-10.0)
[2021-02-16 13:00] LABS: Iron 31 ug/dL (37-145); Percent Saturation 6.2 % (20-50); Total Iron Binding Capacity 495 mcg/dl; Unsaturated Iron Binding 464 ug/dL (112-347)
--- NOTE | 2021-02-19 12:09 | ONC FU_ITS ---
Dr. Knight Patient Follow-Up Note Patient: Lisa Nick Unit #: [id number]: 1955 Dicatated By: Bubba Knight M.D.Date of Visit:Feb 16, 2021 Onc Med Follow-up/Prog Note Chief Complaint: Polycythemia. History of Present Illness: This is a 65 year-old woman with secondary polycythemia. At her follow-up visit with Dr. Cedillo on 02/11/2019 her CBC showed significantly elevated hemoglobin at 16.6 g with hematocrit 52.3%. The white blood cell count was 9500. The platelet count was in the upper normal range at 404,000. The differential showed 56% neutrophils, 32% lymphocytes, 8% monocytes, 3% eosinophils, and 1% basophils. Her comprehensive metabolic profile showed BUN 15 and creatinine 0.79 mg/dL and total bilirubin 0.2 mg/dL. The SGOT and SGPT were borderline high at 33 and 34 U/L respectively, and the alkaline phosphatase was slightly elevated at 132/104 U/L. Her further laboratory studies on 05/13/2019 included an erythropoietin level in the upper normal range at 17.3 mIU/mL. I had seen her initially on 05/27/2019. Her repeat CBC at that time showed just mildly elevated hemoglobin/hematocrit levels at 13.0 g and 48.5%. The white blood cell count was 9900. The platelet count was 378,000. Comprehensive metabolic profile again showed slightly elevated liver enzymes. LDH was normal at 180 U/L. The JAK2 V617F and the JAK2 exon 12 mutations were not detected. As her evaluation was consistent with secondary polycythemia and her blood counts were just mildly elevated, I had just recommended observation/expectant management along with smoking cessation. Her other medical illnesses include hypertension, hyperlipidemia, type 2 diabetes, chronic kidney disease, COPD, GERD, hypothyroidism, obstructive sleep apnea, osteopenia, macular degeneration, chronic migraine, and chronic anxiety. She also has degenerative arthritis and fibromyalgia with chronic pain. She has a history of smoking since age 9, up to 1 pack of cigarettes daily. She had cut down a few years ago, to 1/2 pack/day. INTERIM HISTORY: As of her follow-up visit on 07/27/2020 she had become slightly anemic with hemoglobin 11.8 g and hematocrit 38.9%. The red cell indices were in the low normal range. She was recommended to start an oral iron supplement daily. She is seen for a follow-up visit. She complains that she is fatigued. She is doing some light work and she is trying to exercise, but she does tire easily. ECOG score is 1. She has good appetite. She has not been taking any iron or other vitamin supplements. Reasons for that are unclear. She has not had fever. She says she sweats a lot, both during the daytime and at night. She has allergy related sinus symptoms and she has nonproductive cough. She also complains of having a raspy throat. She is short of breath with activity. She says she hurts a lot across her chest, but that does appear to be positional. She sometimes has nausea. Her acid reflux has been worse lately, she had run out of her medication. Bowel and bladder function have been okay. She has fairly generalized joint pain and she also has pain in her neck and back. She has been taking 800 mg of ibuprofen twice daily. She complains of having headache and she also has dizziness. She has numbness in her right arm. She has had an itchy skin eruption, mainly on the right arm. Medications: Acetaminophen-Codeine 1 (300-15 mg) Tablet Oral t.i.d., clonazePAM 1 (0.5 mg) Tablet Oral b.i.d., Cymbalta 1 (60 mg) Capsule Delayed Release Particles Oral b.i.d., Empagliflozin 1 (10 mg) Tablet Oral daily, Glimepiride 1 (4 mg) Tablet Oral b.i.d., Ibuprofen (800 mg) Tablet Oral t.i.d., Methocarbamol (750 mg) Tablet Oral t.i.d., Pantoprazole Sodium 1 (40 mg) Tablet, enteric coated Oral b.i.d., Propranolol HCl (60 mg) Tablet Oral b.i.d. Allergies: Abilify, Amitriptyline HCl, Baclofen, Doxycycline Hyclate, Ketorolac Tromethamine, Lyrica, Naproxen Sodium, Percocet, and TEGretol. Vital Signs: Performed on Feb 16, 2021 10:50 Height - 63.00 in Weight - 216.4 lbs (HIGH) BSA - 2.00 sq.m BMI - 38.33 (HIGH) Temperature - 97.6 F (LOW) Pulse - 86 /min Respiration - 18 /min BP - 136/79 mm(hg) O2 Sat - 92 % (LOW) Pain - 9 Fatigue - 7 Physical Examination: Constitutional - She looks pretty good generally, Eyes - Sclerae nonicteric. Conjunctivae clear, ENMT - No lesions noted in the oral cavity, Hematologic/Lymphatic - No cervical, clavicular, or axillary adenopathy, Respiratory - Lungs sound clear with diminished air movement bilaterally, Cardiovascular - Heart rhythm is regular. There is no murmur, gallop, or rub noted, Abdomen - Distended. Liver and spleen are not enlarged. There is no abdominal mass or ascites noted and there is no inguinal adenopathy, Extremities - No edema, Integumentary - There are multiple excoriations on the right arm, Neurologic - No focal neurologic deficits noted. Lab/Imaging: Test performed on Feb 16, 2021 12:09 Iron 31 mcg/dL Iron Binding Capacity (TIBC) 495 mcg/dl % Iron Saturation 6.2 % UIBC 464 mcg/dL WBC 11.1 10 3/uL RBC 5.90 10 6/uL HGB 12.6 g/dL HCT 44.2 % MCV 74.9 fl MCH 21.4 pg MCHC 28.5 g/dL RDW 22.0 % Platelet Count 460 10 3/cmm MPV 9.2 fL Neutrophils 6.49 10 3/uL Lymphocytes 3.1 10 3/uL Monocytes 1.0 10 3/uL Eosinophils 0.2 10 3/uL Basophils 0.1 10 3/uL Neutrophil % 58.7 % Lymphocyte % 28.1 % Monocyte % 9.3 % Eosinophil % 1.9 % Basophils % 1.2 % NRBC % 0 % Problem List: 1. Patient with elevated hemoglobin/hematocrit levels. Her laboratory studies and clinical findings were consistent with secondary polycythemia. 2. COPD. 3. Hypertension. 4. Hyperlipidemia. 5. Type 2 diabetes. 6. Chronic kidney disease. 7. GERD. 8. Hypothyroidism. 9. Osteopenia. 10. Obstructive sleep apnea. 11. Degenerative arthritis/degenerative disease of the spine and fibromyalgia. She has associated chronic pain syndrome. 12. Chronic migraine. 13. Macular degeneration. 14. Chronic anxiety. Problems Addressed with this Encounter and Plan: Patient with elevated hemoglobin/hematocrit levels. Her laboratory studies and clinical findings were consistent with secondary polycythemia. During followup her blood counts initially had been just borderline high and she was followed expectantly. As of July 2020 she had become mildly anemic. At this point her hemoglobin is in low normal range, but her serum iron studies are consistent with iron deficiency. She is again advised to begin an oral iron supplement daily. She will be given a prescription to restart Protonix. She is also advised to stop the ibuprofen. She is to bring in a stool sample for IFOB. She will have further GI evaluation as indicated. I will tentatively plan a follow-up visit in 6 months. Signed By: Bubba Knight M.D. <<Signature on File>>
== END 2021-02-16 10:20 | disposition home or self-care (01) ==
LOC: ONCMED 10:22
PROVIDERS: PCP Family Medicine; Visit Provider Internal Medicine Medical Oncology
DX: D75.1 Secondary polycythemia (principal); J44.9 Chronic obstructive pulmonary disease, unspecified; I12.9 Hypertensive chronic kidney disease with stage 1 through stage 4 chronic kidney disease, or unspecified chronic kidney disease; E78.5 Hyperlipidemia, unspecified; E11.22 Type 2 diabetes mellitus with diabetic chronic kidney disease; N18.9 Chronic kidney disease, unspecified; K21.9 Gastro-esophageal reflux disease without esophagitis; E03.9 Hypothyroidism, unspecified; M85.80 Other specified disorders of bone density and structure, unspecified site; G47.33 Obstructive sleep apnea (adult) (pediatric); M47.9 Spondylosis, unspecified; M79.7 Fibromyalgia; G89.4 Chronic pain syndrome; G43.809 Other migraine, not intractable, without status migrainosus; H35.30 Unspecified macular degeneration; F41.9 Anxiety disorder, unspecified; D50.9 Iron deficiency anemia, unspecified; Z79.899 Other long term (current) drug therapy
CPT/HCPCS: 36415; 83540; 83550; 85025; 99214

== ENCOUNTER → 2021-03-02 10:26 | Outpatient (BNVA) | payer MEDICARE, MEDICAID, SELFPAY | PROVIDERS: PCP Family Medicine; Visit Provider Internal Medicine Medical Oncology | DX: D75.1 Secondary polycythemia (principal) | CPT/HCPCS: 82274 ==

== ENCOUNTER → 2021-03-14 07:37 | Outpatient (BNVA) | payer MEDICARE, MEDICAID, SELFPAY | PROVIDERS: PCP Family Medicine; Visit Provider Psychiatry & Neurology Psychiatry | DX: F33.42 Major depressive disorder, recurrent, in full remission (principal); F41.0 Panic disorder [episodic paroxysmal anxiety]; F17.210 Nicotine dependence, cigarettes, uncomplicated | CPT/HCPCS: 99213 ==

== ENCOUNTER → 2021-06-17 11:03 | Outpatient (BNVA) | payer MEDICARE, MEDICAID, SELFPAY | PROVIDERS: PCP Family Medicine; Visit Provider Psychiatry & Neurology Psychiatry | DX: F33.42 Major depressive disorder, recurrent, in full remission (principal); F41.0 Panic disorder [episodic paroxysmal anxiety]; F17.210 Nicotine dependence, cigarettes, uncomplicated | CPT/HCPCS: 99213 ==

== ENCOUNTER 2021-06-23 12:29 | Outpatient (CLI) | payer MEDICARE, MEDICAID, SELFPAY ==
[2021-06-23 13:19] LABS: Basophils # 0.1 10^3/uL (0.0-0.1); Basophils % 0.7 %; Eosinophils # 0.2 10^3/uL (0.0-0.8); Eosinophils % 1.4 %; Hematocrit 55.5 % (37.0-47.0); Hemoglobin 17.9 g/dL (11.5-15.3); Lymphocytes % 27.4 %; Mean Corpuscular HGB Conc 32.3 g/dL (30.0-36.0); Mean Corpuscular Hemoglobin 28.6 pg (28.0-34.0); Mean Corpuscular Volume 88.7 fl (81-99); Monocytes % 9.1 %; Neutrophils # 6.56 10^3/uL (1.8-7.7); Neutrophils % 61.1 %; Nucleated Red Blood Cells % 0 %; Platelet Count 327 10^3/cmm (130-400); Red Blood Count 6.26 10^6/uL (4.1-5.3); Red Cell Distribution Width 17.9 % (12.1-15.1); White Blood Count 10.8 10^3/uL (4.0-10.0)
[2021-06-23 14:24] LABS: Iron 56 ug/dL (37-145); Percent Saturation 16.5 % (20-50); Total Iron Binding Capacity 338 mcg/dl; Unsaturated Iron Binding 282 ug/dL (112-347)
--- NOTE | 2021-06-23 15:58 | ONC FU_ITS ---
Lauren Marcum Progress Note Patient: Lisa Nick Unit #: [id number]: 1955 Dicatated By: Lauren Marcum N.P.Date of Visit:Jun 23, 2021 Onc MED Follow-up/Prog Note Chief Complaint: Polycythemia. History of Present Illness: This is a 65 year-old woman with secondary polycythemia. At her follow-up visit with Dr. Cedillo on 02/11/2019 her CBC showed significantly elevated hemoglobin at 16.6 g with hematocrit 52.3%. The white blood cell count was 9500. The platelet count was in the upper normal range at 404,000. The differential showed 56% neutrophils, 32% lymphocytes, 8% monocytes, 3% eosinophils, and 1% basophils. Her comprehensive metabolic profile showed BUN 15 and creatinine 0.79 mg/dL and total bilirubin 0.2 mg/dL. The SGOT and SGPT were borderline high at 33 and 34 U/L respectively, and the alkaline phosphatase was slightly elevated at 132/104 U/L. Her further laboratory studies on 05/13/2019 included an erythropoietin level in the upper normal range at 17.3 mIU/mL. I had seen her initially on 05/27/2019. Her repeat CBC at that time showed just mildly elevated hemoglobin/hematocrit levels at 13.0 g and 48.5%. The white blood cell count was 9900. The platelet count was 378,000. Comprehensive metabolic profile again showed slightly elevated liver enzymes. LDH was normal at 180 U/L. The JAK2 V617F and the JAK2 exon 12 mutations were not detected. As her evaluation was consistent with secondary polycythemia and her blood counts were just mildly elevated, I had just recommended observation/expectant management along with smoking cessation. Her other medical illnesses include hypertension, hyperlipidemia, type 2 diabetes, chronic kidney disease, COPD, GERD, hypothyroidism, obstructive sleep apnea, osteopenia, macular degeneration, chronic migraine, and chronic anxiety. She also has degenerative arthritis and fibromyalgia with chronic pain. She has a history of smoking since age 9, up to 1 pack of cigarettes daily. She had cut down a few years ago, to 1/2 pack/day. INTERIM HISTORY: As of her follow-up visit on 07/27/2020 she had become slightly anemic with hemoglobin 11.8 g and hematocrit 38.9%. The red cell indices were in the low normal range. She was recommended to start an oral iron supplement daily. Patient presents today for follow-up. She states she is having increased fatigue. Her appetite has been good. She denies fever, chills, night sweats. No sinus drainage or sore throat. No shortness of breath, cough, chest pain. She denies any GI or problems. She has chronic back pain. She complains of an itchy rash on the right arm but it is starting to heal. She denies headache. Review Of Symptoms: See above. Past Medical History: Anxiety Cervical radiculopathy Chronic kidney disease (stage III) Chronic migraine Chronic obstructive pulmonary disease Chronic pain syndrome Degenerative disease of the spine Fibromyalgia Gastroesophageal reflux disease Hyperlipidemia Hypothyroidism Macular degeneration Obstructive sleep apnea Osteopenia Renal hypertension Type II diabetes COVID VACCINE 1&2 in 2020 Past Surgical History: Bilateral cataract excisions in 2017 Right knee arthroplasty in 2013 Laser eye surgery in 2009 Cholecystectomy in 1985 Completion hysterectomy in 1983 Appendectomy/right oophorectomy in 1972 Allergies: Abilify, Amitriptyline HCl, Baclofen, Doxycycline Hyclate, Ketorolac Tromethamine, Lyrica, Naproxen Sodium, Percocet, and TEGretol. Medications: Acetaminophen-Codeine 1 (300-15 mg) Tablet Oral t.i.d. clonazePAM 1 (0.5 mg) Tablet Oral b.i.d. Cymbalta 1 (60 mg) Capsule Delayed Release Particles Oral b.i.d. Empagliflozin 1 (10 mg) Tablet Oral daily Glimepiride 1 (4 mg) Tablet Oral b.i.d. Ibuprofen (800 mg) Tablet Oral t.i.d. Methocarbamol (750 mg) Tablet Oral t.i.d. Pantoprazole Sodium 1 (40 mg) Tablet, enteric coated Oral b.i.d. Propranolol HCl (60 mg) Tablet Oral b.i.d. Family History: Father of lung cancer at age 72. Mother of neuroendocrine lung cancer at age 68. Her mother also had heart disease and both had diabetes. A brother in an accident at age 42. One other brother is still living and has known cerebral aneurysm. Social History: Ms. Nick is and she is an unknown. She is a daily smoker who smokes 0.5 packs/day. She is a former drinker. She is a retired RN. She has smoked since age 9, up to 1 pack of cigarettes daily. She cut down a few years ago and she currently smokes 1/2 pack per day. She has had some alcohol use in the past, but never heavy. She quit drinking more than 20 years ago. Physical Examination: Performed on Jun 23, 2021 13:53: Height - 63.00 in, Weight - 209.2 lbs (LOW), BSA - 1.97 sq.m, BMI - 37.06 (HIGH), Temperature - 97.6 F (LOW), Pulse - 87 /min, Respiration - 16 /min, BP - 127/82 mm(hg), O2 Sat - 93 % (LOW), Pain - 9, and Fatigue - 9. Performance Status: 1 - No physically strenuous activity, but ambulatory and able to carry out light or sedentary work (e.g. office work, light house work). (ECOG) Constitutional Alert, cooperative, oriented. Mood and affect appropriate. Appears close to chronological age. Well nourished. Well developed. Head Normocephalic; no scars. Respiratory Lungs are clear to auscultation without rhonchi or wheezing. Cardiovascular Regular rate and rhythm of heart without murmurs, gallops or rubs. Abdomen Non-tender, non-distended, no masses, ascites or hepatosplenomegaly. Good bowel sounds. No guarding or rebound tenderness. Musculoskeletal No tenderness or swelling, normal range of motion without obvious weakness. Psychiatric Alert and oriented times three. Coherent speech. Verbalizes understanding of our discussions today. Laboratory: Test performed on Jun 23, 2021 13:45 Iron 56 mcg/dL Iron Binding Capacity (TIBC) 338 mcg/dl % Iron Saturation 16.5 % UIBC 282 mcg/dL Test performed on Jun 23, 2021 13:08 WBC 10.8 10 3/uL RBC 6.26 10 6/uL HGB 17.9 g/dL HCT 55.5 % MCV 88.7 fl MCH 28.6 pg MCHC 32.3 g/dL RDW 17.9 % Platelet Count 327 10 3/cmm MPV 9.0 fL Neutrophils 6.56 10 3/uL Lymphocytes 3.0 10 3/uL Monocytes 1.0 10 3/uL Eosinophils 0.2 10 3/uL Basophils 0.1 10 3/uL Neutrophil % 61.1 % Lymphocyte % 27.4 % Monocyte % 9.1 % Eosinophil % 1.4 % Basophils % 0.7 % NRBC % 0 % Impression: 1. Patient with elevated hemoglobin/hematocrit levels. Her laboratory studies and clinical findings were consistent with secondary polycythemia. 2. COPD. 3. Hypertension. 4. Hyperlipidemia. 5. Type 2 diabetes. 6. Chronic kidney disease. 7. GERD. 8. Hypothyroidism. 9. Osteopenia. 10. Obstructive sleep apnea. 11. Degenerative arthritis/degenerative disease of the spine and fibromyalgia. She has associated chronic pain syndrome. 12. Chronic migraine. 13. Macular degeneration. 14. Chronic anxiety. Plan: Patient with elevated hemoglobin/hematocrit levels. Her laboratory studies and clinical findings were consistent with secondary polycythemia. During followup her blood counts initially had been just borderline high and she was followed expectantly. As of July 2020 she had become mildly anemic. At this point her hemoglobin is in low normal range, but her serum iron studies are consistent with iron deficiency. She is again advised to begin an oral iron supplement daily. She will be given a prescription to restart Protonix. She is also advised to stop the ibuprofen. She is to bring in a stool sample for IFOB. She will have further GI evaluation as indicated. Patient presents today for follow-up. Her hemoglobin today is 17.9 and hematocrit is 55.5. Her iron saturation is 16.5%, her iron is at 56. She has been taking iron supplements and her iron studies are improving. She will have a phlebotomy today due to her hemoglobin being 17.9 with 500 cc being removed to follow-up in 2 weeks with CBC and iron studies. Signed By: Lauren Marcum N.P. <<Signature on File>>
== END 2021-06-23 12:30 | disposition home or self-care (01) ==
LOC: ONCMED 12:34
PROVIDERS: PCP Family Medicine; Visit Provider Nurse Practitioner Family
DX: D75.1 Secondary polycythemia (principal); D50.9 Iron deficiency anemia, unspecified; J44.9 Chronic obstructive pulmonary disease, unspecified; K21.9 Gastro-esophageal reflux disease without esophagitis; E03.9 Hypothyroidism, unspecified; I12.9 Hypertensive chronic kidney disease with stage 1 through stage 4 chronic kidney disease, or unspecified chronic kidney disease; E11.22 Type 2 diabetes mellitus with diabetic chronic kidney disease; N18.9 Chronic kidney disease, unspecified; E78.5 Hyperlipidemia, unspecified; Z79.899 Other long term (current) drug therapy; F41.9 Anxiety disorder, unspecified
CPT/HCPCS: 83540; 83550; 85025; 99195; 99214

== ENCOUNTER 2021-07-07 07:58 | Outpatient (CLI) | payer MEDICARE, MEDICAID, SELFPAY ==
[2021-07-07 08:29] LABS: Basophils # 0.1 10^3/uL (0.0-0.1); Eosinophils # 0.2 10^3/uL (0.0-0.8); Eosinophils % 1.6 %; Hematocrit 51.6 % (37.0-47.0); Hemoglobin 16.4 g/dL (11.5-15.3); Lymphocytes # 3.1 10^3/uL (0.8-4.8); Lymphocytes % 25.6 %; Mean Corpuscular HGB Conc 31.8 g/dL (30.0-36.0); Mean Corpuscular Hemoglobin 28.9 pg (28.0-34.0); Mean Corpuscular Volume 90.8 fl (81-99); Mean Platelet Volume 8.6 fL (7.4-10.4); Monocytes # 1.1 10^3/uL (0.2-0.9); Monocytes % 9.1 %; Nucleated Red Blood Cells % 0 %; Platelet Count 319 10^3/cmm (130-400); Red Blood Count 5.68 10^6/uL (4.1-5.3); Red Cell Distribution Width 16.6 % (12.1-15.1); White Blood Count 12.3 10^3/uL (4.0-10.0)
[2021-07-07 08:52] LABS: Ferritin 151 ng/mL (15-150); Iron 69 ug/dL (37-145); Percent Saturation 22.1 % (20-50); Total Iron Binding Capacity 312 mcg/dl; Unsaturated Iron Binding 243 ug/dL (112-347)
[2021-07-07] MEDS: sodium chloride 0.9% 500 ML 600 ML IV (09:45)
--- NOTE | 2021-07-08 11:29 | ONC FU_ITS ---
Lauren Mracum Progress Note Patient: Lisa Nick Unit #: [id number]: 1955 Dicatated By: Lauren Marcum N.P.Date of Visit:Jul 07, 2021 Onc MED Follow-up/Prog Note Chief Complaint: Polycythemia. History of Present Illness: This is a 65 year-old woman with secondary polycythemia. At her follow-up visit with Dr. Cedillo on 02/11/2019 her CBC showed significantly elevated hemoglobin at 16.6 g with hematocrit 52.3%. The white blood cell count was 9500. The platelet count was in the upper normal range at 404,000. The differential showed 56% neutrophils, 32% lymphocytes, 8% monocytes, 3% eosinophils, and 1% basophils. Her comprehensive metabolic profile showed BUN 15 and creatinine 0.79 mg/dL and total bilirubin 0.2 mg/dL. The SGOT and SGPT were borderline high at 33 and 34 U/L respectively, and the alkaline phosphatase was slightly elevated at 132/104 U/L. Her further laboratory studies on 05/13/2019 included an erythropoietin level in the upper normal range at 17.3 mIU/mL. I had seen her initially on 05/27/2019. Her repeat CBC at that time showed just mildly elevated hemoglobin/hematocrit levels at 13.0 g and 48.5%. The white blood cell count was 9900. The platelet count was 378,000. Comprehensive metabolic profile again showed slightly elevated liver enzymes. LDH was normal at 180 U/L. The JAK2 V617F and the JAK2 exon 12 mutations were not detected. As her evaluation was consistent with secondary polycythemia and her blood counts were just mildly elevated, I had just recommended observation/expectant management along with smoking cessation. Her other medical illnesses include hypertension, hyperlipidemia, type 2 diabetes, chronic kidney disease, COPD, GERD, hypothyroidism, obstructive sleep apnea, osteopenia, macular degeneration, chronic migraine, and chronic anxiety. She also has degenerative arthritis and fibromyalgia with chronic pain. She has a history of smoking since age 9, up to 1 pack of cigarettes daily. She had cut down a few years ago, to 1/2 pack/day. INTERIM HISTORY: As of her follow-up visit on 07/27/2020 she had become slightly anemic with hemoglobin 11.8 g and hematocrit 38.9%. The red cell indices were in the low normal range. She was recommended to start an oral iron supplement daily. Patient presents today for follow-up. She is experiencing some fatigue. She is also complaining of back and chest wall pain. She denies radiation to her arms. She thinks that she pulled something due to her coughing which is chronic. She denies shortness of breath. She denies fever, chills, night sweats. No sinus drainage or mouth sores. She does experience nausea occasionally but no vomiting. She denies diarrhea or constipation. No headaches or dizziness. Review Of Symptoms: See above. Past Medical History: Anxiety Cervical radiculopathy Chronic kidney disease (stage III) Chronic migraine Chronic obstructive pulmonary disease Chronic pain syndrome Degenerative disease of the spine Fibromyalgia Gastroesophageal reflux disease Hyperlipidemia Hypothyroidism Macular degeneration Obstructive sleep apnea Osteopenia Renal hypertension Type II diabetes COVID VACCINE 1&2 in 2020 Past Surgical History: Bilateral cataract excisions in 2017 Right knee arthroplasty in 2013 Laser eye surgery in 2009 Cholecystectomy in 1985 Completion hysterectomy in 1983 Appendectomy/right oophorectomy in 1972 Allergies: Abilify, Amitriptyline HCl, Baclofen, Doxycycline Hyclate, Ketorolac Tromethamine, Lyrica, Naproxen Sodium, Percocet, and TEGretol. Medications: Acetaminophen-Codeine 1 (300-15 mg) Tablet Oral t.i.d. clonazePAM 1 (0.5 mg) Tablet Oral b.i.d. Cyclobenzaprine HCl 1 Tablet (of 5 mg) Oral b.i.d. PRN Cymbalta 1 (60 mg) Capsule Delayed Release Particles Oral b.i.d. Empagliflozin 1 (10 mg) Tablet Oral daily Glimepiride 1 (4 mg) Tablet Oral b.i.d. Ibuprofen (800 mg) Tablet Oral t.i.d. Pantoprazole Sodium 1 (40 mg) Tablet, enteric coated Oral b.i.d. Propranolol HCl (60 mg) Tablet Oral b.i.d. Family History: Father of lung cancer at age 72. Mother of neuroendocrine lung cancer at age 68. Her mother also had heart disease and both had diabetes. A brother in an accident at age 42. One other brother is still living and has known cerebral aneurysm. Social History: Ms. Nick is and she is an unknown. She is a daily smoker who smokes 0.5 packs/day. She is a former drinker. She is a retired RN. She has smoked since age 9, up to 1 pack of cigarettes daily. She cut down a few years ago and she currently smokes 1/2 pack per day. She has had some alcohol use in the past, but never heavy. She quit drinking more than 20 years ago. Physical Examination: Performed on Jul 07, 2021 09:13: Height - 63.00 in, Weight - 210 lbs (HIGH), BSA - 1.97 sq.m, BMI - 37.20 (HIGH), Temperature - 97.0 F (LOW), Pulse - 82 /min, Respiration - 19 /min, BP - 110/77 mm(hg), O2 Sat - 93 % (LOW), Pain - 9, and Fatigue - 7. Performance Status: 1 - No physically strenuous activity, but ambulatory and able to carry out light or sedentary work (e.g. office work, light house work). (ECOG) Constitutional Alert, cooperative, oriented. Mood and affect appropriate. Appears close to chronological age. Well nourished. Well developed. Head Normocephalic; no scars. Respiratory Lungs are clear to auscultation without rhonchi or wheezing. Cardiovascular Regular rate and rhythm of heart without murmurs, gallops or rubs. Chest Chest is symmetric without chest wall deformities. Chest wall tenderness Abdomen Non-tender, non-distended, no masses, ascites or hepatosplenomegaly. Good bowel sounds. No guarding or rebound tenderness. Musculoskeletal No tenderness or swelling, normal range of motion without obvious weakness. Psychiatric Alert and oriented times three. Coherent speech. Verbalizes understanding of our discussions today. Laboratory: Test performed on Jul 07, 2021 08:20 Ferritin 151 ng/mL Iron 69 mcg/dL Iron Binding Capacity (TIBC) 312 mcg/dl % Iron Saturation 22.1 % UIBC 243 mcg/dL WBC 12.3 10 3/uL RBC 5.68 10 6/uL HGB 16.4 g/dL HCT 51.6 % MCV 90.8 fl MCH 28.9 pg MCHC 31.8 g/dL RDW 16.6 % Platelet Count 319 10 3/cmm MPV 8.6 fL Neutrophils 7.60 10 3/uL Lymphocytes 3.1 10 3/uL Monocytes 1.1 10 3/uL Eosinophils 0.2 10 3/uL Basophils 0.1 10 3/uL Neutrophil % 62.0 % Lymphocyte % 25.6 % Monocyte % 9.1 % Eosinophil % 1.6 % Basophils % 1.0 % NRBC % 0 % Impression: 1. Patient with elevated hemoglobin/hematocrit levels. Her laboratory studies and clinical findings were consistent with secondary polycythemia. 2. COPD. 3. Hypertension. 4. Hyperlipidemia. 5. Type 2 diabetes. 6. Chronic kidney disease. 7. GERD. 8. Hypothyroidism. 9. Osteopenia. 10. Obstructive sleep apnea. 11. Degenerative arthritis/degenerative disease of the spine and fibromyalgia. She has associated chronic pain syndrome. 12. Chronic migraine. 13. Macular degeneration. 14. Chronic anxiety. Plan: Patient with elevated hemoglobin/hematocrit levels. Her laboratory studies and clinical findings were consistent with secondary polycythemia. During followup her blood counts initially had been just borderline high and she was followed expectantly. As of July 2020 she had become mildly anemic. At this point her hemoglobin is in low normal range, but her serum iron studies are consistent with iron deficiency. She is again advised to begin an oral iron supplement daily. She will be given a prescription to restart Protonix. She is also advised to stop the ibuprofen. She is to bring in a stool sample for IFOB. She will have further GI evaluation as indicated. Patient presents today for follow-up. Her hematocrit today is 51.8. Her iron studies are normal with iron saturation at 22.1% and her iron is 69. Her ferritin is slightly elevated at 151. She will receive a phlebotomy today and return to the clinic in 1 month with CBC and CMP. Signed By: Lauren Marcum, N.P. <<Signature on File>>
== END 2021-07-07 07:59 | disposition home or self-care (01) ==
PROVIDERS: PCP Family Medicine; Visit Provider Nurse Practitioner Family
DX: D75.1 Secondary polycythemia (principal); D50.9 Iron deficiency anemia, unspecified; J44.9 Chronic obstructive pulmonary disease, unspecified; K21.9 Gastro-esophageal reflux disease without esophagitis; E03.9 Hypothyroidism, unspecified; I12.9 Hypertensive chronic kidney disease with stage 1 through stage 4 chronic kidney disease, or unspecified chronic kidney disease; E11.29 Type 2 diabetes mellitus with other diabetic kidney complication; N18.9 Chronic kidney disease, unspecified; E78.5 Hyperlipidemia, unspecified; Z79.899 Other long term (current) drug therapy; F41.9 Anxiety disorder, unspecified
CPT/HCPCS: 82728; 83540; 83550; 85025; 96360; 99195; 99215; J7040

== ENCOUNTER 2021-08-22 07:24 | Outpatient (CLI) | payer MEDICARE, MEDICAID, SELFPAY ==
[2021-08-22 08:47] VITALS: BMI 36.6
--- NOTE | 2021-08-22 08:48 | NMCV_ITS ---
NM weston perf SPECT r/s* [id number] Lisa Nick Age: 65 Gender: F : 1955 Exam Date: 08/22/2021 09:21 Ordering Phys: Jordan Cedillo Technologist: ANA MARIA Deng Exam Location: [facility] Indications: CHEST PAIN STRESS TEST Please see separate stress test report in [facility] for full findings IMAGE PROTOCOL Rest/Stress 1 Lexiscan Day Radiopharmaceutical Dose (mCi) Administration Site Administered by Rest: Tc-99m 10.9 IV ANA MARIA Ruiz Sestamibi Stress:Tc-99m 32.6 IV ANA MARIA Ruiz Sestamibi Rest: 22-Aug-2021 60 Discovery 630 Stress: 22-Aug-2021 30 Discovery 630 0.4mg Lexiscan. Images obtained in supine and prone position. SPECT RESULTS Technical Quality: Excellent Raw Data Analysis: Normal Image Corrections: No attenuation or motion correction applied Summed Stress Score: 0 Summed Rest Score: 4 Summed Difference Score: 0 PERFUSION FINDINGS SPECT images demonstrate homogeneous tracer distribution throughout the myocardium. FUNCTIONAL RESULTS (calculated via Gated SPECT) Stress Image LV EF (%): 78 Stress EDV (mL):67 TID: 1 Stress ESV (mL):15 FUNCTIONAL FINDINGS: There is normal left ventricular systolic function. IMPRESSIONS 1. Normal myocardial perfusion imaging with no evidence of ischemia. 2. LV systolic function is normal Chano Naidu MD (Electronically Signed) Final Date: 24 August 2021 12:08 S
--- NOTE | 2021-08-22 08:48 | ECG_ITS ---
[facility] Test Date: 2021-08-22 Pat Name: Lisa Nick Department: Room: Gender: Female Bobbin Collector: Nan Whalen : 1955 Requested By: Jordan Cedillo Order Number: [id number] Mihaela MD: Chano Naidu M.D. Interpretive Statements NAME OF STUDY: LEXISCAN SESTAMIBI STRESS TEST INDICATION: [Chest Pain, ] Procedure: At the baseline, the blood pressure was 132/87mmHg with a heart rate of 74 bpm. The electrocardiogram showed normal sinus rhythm, normal axis with normal ST and T's. The Lexiscan was infused over a period of 20 seconds. A total of 0.4 mg of Lexiscan was infused. The stress phase was continued for a total of 5 minutes. Heart rate was at the end of stress phase was 84 bpm and a blood pressure of 163/90 mmHg. The EKG at the peak infusion revealed since normal sinus rhythm with no significant ST-T wave changes. Sestamibi was injected 20 seconds after the Lexiscan infusion. Blood pressure at the end of recovery phase was 135/71mmHg with a heart rate of 90 bpm. Conclusion: 1. Normal EKG response to Lexiscan infusion 2. No Lexiscan induced chest pain or cardiac arrhythmia. 3. Normal blood pressure and heart rate response. 4. Sestamibi/sestamibi perfusion scan pending; see separate report. Electronically Signed On 09-04-2021 14:24:51 CDT by Chano Naidu M.D. [id number]
[2021-08-22] MEDS: regadenoson 0.4 Mg/5 ml Syringe IVP (09:58)
[2021-08-22] MEDS: ondansetron 2 mg/ML SDV 2 mL 4 MG IVP (10:12)
[2021-08-22 10:25] VITALS: BP 139/74; PULSE 90
== END 2021-08-22 07:25 | disposition home or self-care (01) ==
LOC: CDL 07:26
PROVIDERS: PCP Family Medicine; Visit Provider Family Medicine
DX: R07.9 Chest pain, unspecified (principal); I25.118 Atherosclerotic heart disease of native coronary artery with other forms of angina pectoris; R68.89 Other general symptoms and signs
CPT/HCPCS: 78452; 93017; A9500; J2405; J2785

== ENCOUNTER 2021-08-29 13:57 | Oncology outpatient (recurring) (ONCR) | payer MEDICARE, MEDICAID, SELFPAY ==
[2021-08-29 14:30] LABS: Basophils # 0.1 10^3/uL (0.0-0.1); Basophils % 0.9 %; Eosinophils # 0.2 10^3/uL (0.0-0.8); Eosinophils % 1.8 %; Hematocrit 51.1 % (37.0-47.0); Hemoglobin 16.9 g/dL (11.5-15.3); Lymphocytes # 2.9 10^3/uL (0.8-4.8); Lymphocytes % 28.1 %; Mean Corpuscular HGB Conc 33.1 g/dL (30.0-36.0); Mean Corpuscular Hemoglobin 30.7 pg (28.0-34.0); Mean Corpuscular Volume 92.7 fl (81-99); Mean Platelet Volume 9.2 fL (7.4-10.4); Monocytes # 0.8 10^3/uL (0.2-0.9); Monocytes % 7.5 %; Neutrophils # 6.34 10^3/uL (1.8-7.7); Neutrophils % 61.2 %; Nucleated Red Blood Cells % 0 %; Platelet Count 351 10^3/cmm (130-400); Red Blood Count 5.51 10^6/uL (4.1-5.3); Red Cell Distribution Width 14.4 % (12.1-15.1); White Blood Count 10.4 10^3/uL (4.0-10.0)
[2021-08-29 14:37] LABS: Alanine Aminotransferase 25 U/L (0-33); Albumin Level 4.4 g/dL (3.5-5.2); Alkaline Phosphatase 126 IU/L (35-105); Aspartate Amino Transferase 26 U/L (0-32); Blood Urea Nitrogen 13 mg/dL (8-23); Calcium 9.9 mg/dL (8.5-10.5); Carbon Dioxide 25 mmol/L (22-29); Chloride 102 mmol/L (98-107); Globulin 2.9 g/dL (1.3-4.6); Glomerular Filtration Rate 100.3 mL/min (90-130); Glucose 122 mg/dL (65-115); Osmolality Calculated 291 mOsm/kg (285-295); Sodium 140 mmol/L (136-145); Total Bilirubin 0.2 mg/dL (0.15-1.2); Total Protein 7.3 g/dL (6.6-8.7)
[2021-08-29 14:39] LABS: Anion Gap 17.2 (5-19); Potassium 4.2 mmol/L (3.5-5.1)
== END 2021-09-08 23:59 | disposition home or self-care (01) ==
PROVIDERS: Nurse Practitioner Family; PCP Family Medicine; Visit Provider Internal Medicine Medical Oncology
DX: D75.1 Secondary polycythemia (principal)
CPT/HCPCS: 80053; 85025; G0463

== ENCOUNTER → 2021-09-07 07:00 | Outpatient (BNVA) | payer MEDICARE, MEDICAID, SELFPAY | PROVIDERS: PCP Family Medicine; Visit Provider Psychiatry & Neurology Psychiatry | DX: F33.42 Major depressive disorder, recurrent, in full remission (principal); F41.0 Panic disorder [episodic paroxysmal anxiety]; F17.210 Nicotine dependence, cigarettes, uncomplicated | CPT/HCPCS: 99213 ==

== ENCOUNTER → 2021-10-26 13:36 | Outpatient (BNVA) | payer MEDICARE, MEDICAID, SELFPAY | PROVIDERS: PCP Family Medicine; Referring Provider Internal Medicine Cardiovascular Disease; Visit Provider Internal Medicine Cardiovascular Disease | DX: R07.9 Chest pain, unspecified (principal); I12.9 Hypertensive chronic kidney disease with stage 1 through stage 4 chronic kidney disease, or unspecified chronic kidney disease; E11.22 Type 2 diabetes mellitus with diabetic chronic kidney disease; F17.210 Nicotine dependence, cigarettes, uncomplicated; N18.9 Chronic kidney disease, unspecified; Z79.84 Long term (current) use of oral hypoglycemic drugs; E78.2 Mixed hyperlipidemia | CPT/HCPCS: 99214 ==

== ENCOUNTER 2022-02-20 12:17 | Oncology outpatient (recurring) (ONCR) | payer MEDICARE, MEDICAID, SELFPAY | END 2022-03-11 23:59 | disposition home or self-care (01) | PROVIDERS: PCP Family Medicine; Visit Provider Internal Medicine Medical Oncology | DX: D75.1 Secondary polycythemia (principal); F17.210 Nicotine dependence, cigarettes, uncomplicated; R53.83 Other fatigue | CPT/HCPCS: 99213 ==

== ENCOUNTER 2022-03-14 08:53 | Outpatient (CLI) | payer MEDICARE, MEDICAID, SELFPAY ==
--- NOTE | 2022-03-14 09:09 | MM_ITS ---
WS: [id number] Bilateral screening 3D tomosynthesis digital mammogram, 03/14/2022 Clinical Data: SCREENING Comparison: 12/16/2020, 09/25/2019, 04/25/2018, 12/27/2016, 11/25/2013, 06/13/2011, 03/17/2010. Findings: The breast parenchymal pattern shows fibroglandular tissue. No spiculated masses or clustered calcifi cations are seen. There are no secondary signs of carcinoma. MM/[place] [id number] Impression: 1. Negative bilateral mammogram unchanged. 2. Recommend annual screening mammograms. BIRADS: 1-Negative FOLLOW UP: 1 Year Follow-up The CAD loading checker was used.
== END 2022-03-14 08:54 | disposition home or self-care (01) ==
PROVIDERS: PCP Family Medicine; Visit Provider Family Medicine
DX: Z12.31 Encounter for screening mammogram for malignant neoplasm of breast (principal)
CPT/HCPCS: 77063; 77067

== ENCOUNTER 2022-03-17 11:01 | Outpatient (CLI) | payer MEDICARE, MEDICAID, SELFPAY ==
--- NOTE | 2022-03-17 | CT_ITS ---
WS: [id number] LDCT LUNG CANCER SCREENING TECHNIQUE: Noncontrast CT of the chest with coronal and sagittal reformatted images. CLINICAL INFORMATION: Screening COMPARISON: CTA chest 2016 DLP: 73.99 mGy.cm DIvol: Mean CTDIvol: 1.60 (mGy) All CT scans at [facility] use at least one of these dose optimization techniques: automat ed exposure control; mA and/or kV adjustment per patient size (includes targeted exams where dose is matched to clinical indication); or iterative reconstruction. FINDINGS: Mild chronic emphysematous changes. Subsegmental atelectasis or fibrosis in the lingula at the cardio phrenic angle. No acute pulmonary infiltrates. No focal pneumonia or pleural fluid. Calcified granulo ma RIGHT upper lobe. Mild bronchiectasis RIGHT middle lobe. Slight subsegmental atelectasis in the RI GHT greater than LEFT lung base. Adrenal glands are normal. Tiny esophageal hiatal hernia. Normal caliber thoracic aorta. Calcified RIGHT hilar lymph nodes. No mediastinal or hilar lymphadenop athy. No axillary lymphadenopathy. CT/CT lung screening [id number] IMPRESSION: LUNG-RADS: 2-Benign Appearance or Behavior FOLLOW UP: 12 Month: Continue annual screening with LDCT
== END 2022-03-17 11:02 | disposition home or self-care (01) ==
LOC: RAD 11:02
PROVIDERS: PCP Family Medicine; Visit Provider Internal Medicine Medical Oncology
DX: Z12.2 Encounter for screening for malignant neoplasm of respiratory organs (principal); F17.210 Nicotine dependence, cigarettes, uncomplicated
CPT/HCPCS: 71271

== ENCOUNTER → 2022-04-26 14:15 | Outpatient (BNVA) | payer MEDICARE, MEDICAID, SELFPAY | PROVIDERS: PCP Family Medicine; Visit Provider Internal Medicine Cardiovascular Disease | DX: R07.9 Chest pain, unspecified (principal); E78.2 Mixed hyperlipidemia; J44.9 Chronic obstructive pulmonary disease, unspecified; I12.9 Hypertensive chronic kidney disease with stage 1 through stage 4 chronic kidney disease, or unspecified chronic kidney disease; E11.22 Type 2 diabetes mellitus with diabetic chronic kidney disease; F17.210 Nicotine dependence, cigarettes, uncomplicated; N18.9 Chronic kidney disease, unspecified; Z79.84 Long term (current) use of oral hypoglycemic drugs | CPT/HCPCS: 99214; Q3014 ==

== ENCOUNTER 2022-08-28 11:59 | Oncology outpatient (recurring) (ONCR) | payer MEDICARE, MEDICAID, SELFPAY ==
[2022-08-28 12:06] VITALS: BP 116/78; PULSE 73; RESP 18; TEMP 36.4; O2SAT 97
[2022-08-28 12:24] LABS: Basophils # 0.1 10^3/uL (0.0-0.1); Basophils % 1.2 %; Eosinophils # 0.3 10^3/uL (0.0-0.8); Eosinophils % 2.7 %; Hematocrit 48.5 % (37.0-47.0); Hemoglobin 15.5 g/dL (11.5-15.3); Lymphocytes # 2.9 10^3/uL (0.8-4.8); Lymphocytes % 28.2 %; Mean Corpuscular Hemoglobin 27.6 pg (28.0-34.0); Mean Corpuscular Volume 86.5 fl (81-99); Mean Platelet Volume 8.5 fL (7.4-10.4); Monocytes # 0.9 10^3/uL (0.2-0.9); Monocytes % 8.3 %; Neutrophils # 6.19 10^3/uL (1.8-7.7); Neutrophils % 59.3 %; Nucleated Red Blood Cells % 0 %; Platelet Count 379 10^3/cmm (130-400); Red Blood Count 5.61 10^6/uL (4.1-5.3); Red Cell Distribution Width 15.2 % (12.1-15.1); White Blood Count 10.4 10^3/uL (4.0-10.0)
[2022-08-28 12:46] LABS: Alanine Aminotransferase 19 U/L (0-33); Albumin Level 4.5 g/dL (3.5-5.2); Alkaline Phosphatase 98 U/L (35-105); Anion Gap 16.5 (5-19); Aspartate Amino Transferase 22 U/L (0-32); Blood Urea Nitrogen 15 mg/dL (8-23); Calcium 9.6 mg/dL (8.5-10.5); Carbon Dioxide 24 mmol/L (22-29); Chloride 102 mmol/L (98-107); Ferritin 8 ng/mL (15-150); Globulin 2.9 g/dL (1.3-4.6); Glomerular Filtration Rate 83.7 mL/min (90-130); Glucose 97 mg/dL (65-115); Iron 36 ug/dL (37-145); Osmolality Calculated 287 mOsm/kg (285-295); Percent Saturation 7.8 % (20-50); Potassium 4.5 mmol/L (3.5-5.1); Sodium 138 mmol/L (136-145); Total Bilirubin 0.3 mg/dL (0.15-1.2); Total Iron Binding Capacity 458 mcg/dl; Total Protein 7.4 g/dL (6.6-8.7); Unsaturated Iron Binding 422 ug/dL (112-347)
== END 2022-09-08 23:59 | disposition home or self-care (01) ==
PROVIDERS: PCP Family Medicine; Visit Provider Internal Medicine Medical Oncology
DX: D75.1 Secondary polycythemia (principal); D50.8 Other iron deficiency anemias
CPT/HCPCS: 36415; 80053; 82728; 83540; 83550; 85025; 99213

== ENCOUNTER 2022-11-28 12:35 | Oncology outpatient (recurring) (ONCR) | payer MEDICARE, MEDICAID, SELFPAY ==
[2022-11-28 12:48] VITALS: BP 117/71; PULSE 76; RESP 16; TEMP 36.5; O2SAT 97
== END 2022-12-09 23:59 | disposition home or self-care (01) ==
PROVIDERS: PCP Family Medicine; Visit Provider Internal Medicine Medical Oncology
DX: D75.1 Secondary polycythemia (principal); D50.8 Other iron deficiency anemias; F17.210 Nicotine dependence, cigarettes, uncomplicated; R53.83 Other fatigue; N18.9 Chronic kidney disease, unspecified; J44.9 Chronic obstructive pulmonary disease, unspecified; I10 Essential (primary) hypertension; E78.5 Hyperlipidemia, unspecified; E11.9 Type 2 diabetes mellitus without complications; Z53.9 Procedure and treatment not carried out, unspecified reason
CPT/HCPCS: 80053; 82728; 83540; 83550; 85025; 99214

== ENCOUNTER → 2023-01-24 13:33 | Outpatient (BNVA) | payer MEDICARE, MEDICAID, SELFPAY | PROVIDERS: PCP Family Medicine; Visit Provider Internal Medicine Cardiovascular Disease | DX: R07.9 Chest pain, unspecified (principal); E78.2 Mixed hyperlipidemia; I12.9 Hypertensive chronic kidney disease with stage 1 through stage 4 chronic kidney disease, or unspecified chronic kidney disease; E11.22 Type 2 diabetes mellitus with diabetic chronic kidney disease; N18.9 Chronic kidney disease, unspecified; Z79.84 Long term (current) use of oral hypoglycemic drugs; F17.210 Nicotine dependence, cigarettes, uncomplicated; J44.9 Chronic obstructive pulmonary disease, unspecified | CPT/HCPCS: 99214 ==

== ENCOUNTER 2023-02-27 11:54 | Oncology outpatient (recurring) (ONCR) | payer MEDICARE, MEDICAID, SELFPAY ==
[2023-02-27 12:08] VITALS: BP 148/83; PULSE 87; RESP 16; TEMP 36.6; O2SAT 97
[2023-02-27 12:43] LABS: Basophils # 0.1 10^3/uL (0.0-0.1); Basophils % 1.1 %; Eosinophils # 0.2 10^3/uL (0.0-0.8); Eosinophils % 1.7 %; Hematocrit 45.9 % (36-47); Lymphocytes # 3.2 10^3/uL (0.8-4.8); Lymphocytes % 31.7 %; Mean Corpuscular HGB Conc 32.5 g/dL (30-55); Mean Corpuscular Hemoglobin 26.7 pg (27-33); Mean Corpuscular Volume 82.1 fl (85-98); Mean Platelet Volume 8.5 fL (7.4-10.4); Monocytes # 0.7 10^3/uL (0.2-0.9); Monocytes % 7.3 %; Neutrophils # 5.87 10^3/uL (1.8-7.7); Neutrophils % 57.9 %; Nucleated Red Blood Cells % 0 %; Platelet Count 391 10^3/cmm (157-399); Red Blood Count 5.59 10^6/uL (3.85-5.65); White Blood Count 10.13 10^3/uL (3.29-11.43)
[2023-02-27 12:56] LABS: Alanine Aminotransferase 22 U/L (0-33); Albumin Level 4.6 g/dL (3.5-5.2); Alkaline Phosphatase 97 U/L (35-105); Anion Gap 13.1 (5-19); Aspartate Amino Transferase 21 U/L (0-32); Blood Urea Nitrogen 12 mg/dL (8-23); Calcium 9.8 mg/dL (8.5-10.5); Carbon Dioxide 25 mmol/L (22-29); Chloride 101 mmol/L (98-107); Globulin 2.8 g/dL (1.3-4.6); Glomerular Filtration Rate 83.5 mL/min (90-130); Glucose 113 mg/dL (65-115); Osmolality Calculated 281 mOsm/kg (285-295); Potassium 4.1 mmol/L (3.5-5.1); Sodium 135 mmol/L (136-145); Total Bilirubin 0.2 mg/dL (0.15-1.2); Total Protein 7.4 g/dL (6.6-8.7)
== END 2023-03-11 23:59 | disposition home or self-care (01) ==
PROVIDERS: PCP Family Medicine; Visit Provider Internal Medicine Medical Oncology
DX: D75.1 Secondary polycythemia (principal); D50.8 Other iron deficiency anemias; F17.210 Nicotine dependence, cigarettes, uncomplicated; R53.83 Other fatigue
CPT/HCPCS: 36415; 80053; 85025; 99213

== ENCOUNTER 2023-07-09 09:21 | Oncology outpatient (recurring) (ONCR) | payer MEDICARE, MEDICAID, SELFPAY ==
[2023-07-09 09:57] LABS: Basophils # 0.1 10^3/uL (0.0-0.1); Basophils % 1.1 %; Eosinophils # 0.3 10^3/uL (0.0-0.8); Eosinophils % 2.7 %; Hematocrit 41.8 % (36-47); Lymphocytes # 2.5 10^3/uL (0.8-4.8); Lymphocytes % 26.2 %; Mean Corpuscular HGB Conc 30.9 g/dL (30-55); Mean Corpuscular Hemoglobin 24.4 pg (27-33); Mean Platelet Volume 8.7 fL (7.4-10.4); Monocytes # 1.1 10^3/uL (0.2-0.9); Monocytes % 11.8 %; Neutrophils # 5.47 10^3/uL (1.8-7.7); Neutrophils % 57.7 %; Nucleated Red Blood Cells % 0 %; Platelet Count 435 10^3/cmm (157-399); Red Blood Count 5.29 10^6/uL (3.85-5.65); Red Cell Distribution Width 17.6 % (12.1-15.1); White Blood Count 9.49 10^3/uL (3.29-11.43)
[2023-07-09 10:02] LABS: Alanine Aminotransferase 23 U/L (0-33); Albumin Level 4.4 g/dL (3.5-5.2); Alkaline Phosphatase 97 U/L (35-105); Anion Gap 14.9 (5-19); Aspartate Amino Transferase 28 U/L (0-32); Blood Urea Nitrogen 9 mg/dL (8-23); Calcium 8.9 mg/dL (8.5-10.5); Carbon Dioxide 25 mmol/L (22-29); Chloride 104 mmol/L (98-107); Ferritin 11 ng/mL (15-150); Globulin 2.7 g/dL (1.3-4.6); Glomerular Filtration Rate 71.5 mL/min (90-130); Glucose 119 mg/dL (65-115); Iron 32 ug/dL (37-145); Osmolality Calculated 288 mOsm/kg (285-295); Potassium 4.9 mmol/L (3.5-5.1); Sodium 139 mmol/L (136-145); Total Bilirubin 0.2 mg/dL (0.15-1.2); Total Iron Binding Capacity 457 mcg/dl; Total Protein 7.1 g/dL (6.6-8.7); Unsaturated Iron Binding 425 ug/dL (112-347)
[2023-07-09 12:43] VITALS: BP 140/76; PULSE 76; RESP 16; TEMP 36.4; O2SAT 95
== END 2023-07-10 23:59 | disposition home or self-care (01) ==
PROVIDERS: Nurse Practitioner Family; PCP Family Medicine; Visit Provider Internal Medicine Medical Oncology
DX: D75.1 Secondary polycythemia (principal); D50.8 Other iron deficiency anemias; F17.210 Nicotine dependence, cigarettes, uncomplicated; R53.83 Other fatigue
CPT/HCPCS: 36415; 80053; 82728; 83540; 83550; 85025; 99214

== ENCOUNTER 2023-10-09 10:53 | Oncology outpatient (recurring) (ONCR) | payer MEDICARE, MEDICAID, SELFPAY ==
[2023-10-09 11:40] LABS: Basophils # 0.1 10^3/uL (0.0-0.1); Basophils % 1.1 %; Eosinophils # 0.2 10^3/uL (0.0-0.8); Eosinophils % 2.3 %; Hematocrit 44.3 % (36-47); Lymphocytes # 2.5 10^3/uL (0.8-4.8); Lymphocytes % 27.6 %; Mean Corpuscular HGB Conc 30.7 g/dL (30-55); Mean Corpuscular Hemoglobin 24.6 pg (27-33); Mean Corpuscular Volume 80.3 fl (85-98); Mean Platelet Volume 8.6 fL (7.4-10.4); Monocytes # 0.9 10^3/uL (0.2-0.9); Monocytes % 10.2 %; Neutrophils # 5.36 10^3/uL (1.8-7.7); Neutrophils % 58.6 %; Nucleated Red Blood Cells % 0 %; Platelet Count 329 10^3/cmm (157-399); Red Blood Count 5.52 10^6/uL (3.85-5.65); Red Cell Distribution Width 21.9 % (12.1-15.1); White Blood Count 9.14 10^3/uL (3.29-11.43)
[2023-10-09 12:07] LABS: Alanine Aminotransferase 20 U/L (0-33); Albumin Level 4.3 g/dL (3.5-5.2); Alkaline Phosphatase 87 U/L (35-105); Anion Gap 15.4 (5-19); Aspartate Amino Transferase 23 U/L (0-32); Blood Urea Nitrogen 11 mg/dL (8-23); Calcium 9.6 mg/dL (8.5-10.5); Carbon Dioxide 25 mmol/L (22-29); Chloride 104 mmol/L (98-107); Ferritin 18 ng/mL (15-150); Globulin 2.6 g/dL (1.3-4.6); Glomerular Filtration Rate 99.7 mL/min (90-130); Glucose 110 mg/dL (65-115); Iron 35 ug/dL (37-145); Osmolality Calculated 290 mOsm/kg (285-295); Percent Saturation 7.9 % (20-50); Potassium 4.4 mmol/L (3.5-5.1); Sodium 140 mmol/L (136-145); Total Bilirubin 0.2 mg/dL (0.15-1.2); Total Iron Binding Capacity 438 mcg/dl; Total Protein 6.9 g/dL (6.6-8.7); Unsaturated Iron Binding 403 ug/dL (112-347)
== END 2023-10-10 23:59 | disposition home or self-care (01) ==
PROVIDERS: Nurse Practitioner Family; PCP Family Medicine; Visit Provider Internal Medicine Medical Oncology
DX: D75.1 Secondary polycythemia (principal); D50.9 Iron deficiency anemia, unspecified; F17.210 Nicotine dependence, cigarettes, uncomplicated; Z79.899 Other long term (current) drug therapy
CPT/HCPCS: 36415; 80053; 82728; 83540; 83550; 85025; 99214

== ENCOUNTER → 2023-10-24 12:34 | Outpatient (BNVA) | payer MEDICARE, MEDICAID, SELFPAY | PROVIDERS: PCP Family Medicine; Visit Provider Internal Medicine | DX: R07.9 Chest pain, unspecified (principal); E78.2 Mixed hyperlipidemia; I12.9 Hypertensive chronic kidney disease with stage 1 through stage 4 chronic kidney disease, or unspecified chronic kidney disease; E11.22 Type 2 diabetes mellitus with diabetic chronic kidney disease; N18.9 Chronic kidney disease, unspecified; J44.9 Chronic obstructive pulmonary disease, unspecified; Z72.0 Tobacco use; Z79.84 Long term (current) use of oral hypoglycemic drugs | CPT/HCPCS: 99214 ==

== ENCOUNTER 2023-11-23 09:23 | Outpatient (CLI) | payer MEDICARE, MEDICAID, SELFPAY ==
--- NOTE | 2023-11-23 | ECG_ITS ---
[facility] Test Date: 2023-11-23 Pat Name: Lisa Nick Department: Room: Gender: Female Rn Family Practice: [place] Siu : 1955 Requested By: Chano Naidu Order Number: [id number] Mihaela MD: BRANDO LLAMAS Interpretive Statements NAME OF STUDY: LEXISCAN SESTAMIBI STRESS TEST INDICATION: [CP/SOB, ] NOTE: Please note that this is the electrocardiogram portion of the Lexiscan/Sestamibi stress test. The perfusion scan will be documented separately. DATA: Baseline heart rate was 79 beats per minute. Baseline blood pressure was 170/94 millimeters of mercury. Target heart rate was 130. Maximum heart rate achieved was 129. which was 84% of the predicted target heart rate. Maximum blood pressure was 200/99 millimeters of mercury. The reason for ending the test was completion of the protocol. The patient did not experience any symptoms. [] ELECTROCARDIOGRAM: BASELINE: Sinus rhythm. Normal axis. Otherwise, old anterior wall myocardial infarction, otherwise no ST-T changes suggestive of ischemia noted. No arrhythmia noted. EXERCISE: After Lexiscan injection, no ST-T changes suggestive of ischemic noted. No arrhythmia noted. CONCLUSION: Please note due to baseline abnormality of the EKG specificity and sensitivity of the EKG portion of LexiScan MIBI stress test will be low 1. EKG not suggestive of ischemia 2. Lexiscan injection unremarkable. 3. Blood pressure response hypertensive 4. Perfusion scan will be documented separately. Electronically Signed On 11-23-2023 13:00:27 CDT by BRANDO LLAMAS [id number]
[2023-11-23 10:00] VITALS: BMI 5202.2
--- NOTE | 2023-11-23 10:09 | NMCV_ITS ---
NM weston perf SPECT r/s* [id number] Lisa Nick Age: 68 Gender: F : 1955 Exam Date: 11/23/2023 10:09 Ordering Phys: Chano Naidu M.D ([email or web address]) Technologist: ANA MARIA Raines Exam Location: [facility] Indications: cp/sob STRESS TEST Please see separate stress test report in [facility] for full findings IMAGE PROTOCOL Rest/Stress 1 Lexiscan Day Radiopharmaceutical Dose (mCi) Administration Site Administered by Rest: Tc-99m 10.6 IV Nidia Mendiola FAMILY DENTIST Sestamibi Stress:Tc-99m 32.5 IV Nidia Mendiola, FAMILY DENTIST Sestamibi Rest: 23-Nov-2023 60 Discovery 630 Stress: 23-Nov-2023 30 Discovery 630 0.4mg Lexiscan. Images obtained in supine and prone position. SPECT RESULTS Technical Quality: Good Raw Data Analysis: Normal Image Corrections: No attenuation or motion correction applied Summed Stress Score: 0 Summed Rest Score: 0 Summed Difference Score: 0 PERFUSION FINDINGS SPECT images demonstrate homogeneous tracer distribution throughout the myocardium. FUNCTIONAL RESULTS (calculated via Gated SPECT) Stress Image LV EF (%): 79 Stress EDV (mL):62 TID: 0.86 Stress ESV (mL):13 FUNCTIONAL FINDINGS: There is normal left ventricular systolic function. IMPRESSIONS Myocardial perfusion imaging is normal. Abdirizak Schwartz MD (Electronically Signed) Final Date: 23 November 2023 12:55 S
[2023-11-23] MEDS: regadenoson 0.4 Mg/5 ml Syringe IVP (11:34)
[2023-11-23] MEDS: ondansetron 2 mg/ML SDV 2 mL 4 MG IVP (11:41)
[2023-11-23 11:44] VITALS: BP 163/90; PULSE 83
== END 2023-11-23 09:24 | disposition home or self-care (01) ==
LOC: CDL 09:24
PROVIDERS: PCP Family Medicine; Visit Provider Internal Medicine
DX: R07.9 Chest pain, unspecified (principal); R06.02 Shortness of breath; R94.39 Abnormal result of other cardiovascular function study
CPT/HCPCS: 36415; 78452; 93017; 96374; A9500; J2405; J2785

== ENCOUNTER 2024-01-10 11:06 | Oncology outpatient (recurring) (ONCR) | payer MEDICARE, MEDICAID, SELFPAY ==
[2024-01-10 12:03] LABS: Basophils # 0.1 10^3/uL (0.0-0.1); Eosinophils # 0.2 10^3/uL (0.0-0.8); Lymphocytes # 2.8 10^3/uL (0.8-4.8); Mean Corpuscular HGB Conc 31.8 g/dL (30-55); Mean Corpuscular Volume 84.9 fl (85-98); Mean Platelet Volume 8.5 fL (7.4-10.4); Monocytes # 0.9 10^3/uL (0.2-0.9); Monocytes % 9.4 %; Neutrophils # 5.15 10^3/uL (1.8-7.7); Neutrophils % 56.3 %; Nucleated Red Blood Cells % 0 %; Platelet Count 353 10^3/cmm (157-399); Red Cell Distribution Width 20.1 % (12.1-15.1); White Blood Count 9.15 10^3/uL (3.29-11.43)
[2024-01-10 12:24] LABS: Alanine Aminotransferase 23 U/L (0-33); Albumin Level 4.1 g/dL (3.5-5.2); Alkaline Phosphatase 86 U/L (35-105); Anion Gap 14.6 (5-19); Aspartate Amino Transferase 23 U/L (0-32); Blood Urea Nitrogen 10 mg/dL (8-23); Calcium 8.8 mg/dL (8.5-10.5); Carbon Dioxide 25 mmol/L (22-29); Chloride 103 mmol/L (98-107); Creatinine Clr Calc Pharmacy 69.2614; Ferritin 32 ng/mL (15-150); Globulin 2.5 g/dL (1.3-4.6); Glomerular Filtration Rate 83.2 mL/min (90-130); Glucose 101 mg/dL (65-115); Iron 65 ug/dL (37-145); Osmolality Calculated 285 mOsm/kg (285-295); Percent Saturation 15.9 % (20-50); Potassium 4.6 mmol/L (3.5-5.1); Sodium 138 mmol/L (136-145); Total Bilirubin 0.2 mg/dL (0.15-1.2); Total Iron Binding Capacity 407 mcg/dl; Total Protein 6.6 g/dL (6.6-8.7); Unsaturated Iron Binding 342 ug/dL (112-347)
== END 2024-01-10 23:59 | disposition home or self-care (01) ==
PROVIDERS: Nurse Practitioner Family; PCP Family Medicine; Visit Provider Internal Medicine Hematology & Oncology
DX: D75.1 Secondary polycythemia (principal); D50.8 Other iron deficiency anemias; F17.210 Nicotine dependence, cigarettes, uncomplicated; Z79.899 Other long term (current) drug therapy
CPT/HCPCS: 80053; 82728; 83540; 83550; 85025; 99214

== ENCOUNTER 2024-04-10 09:18 | Oncology outpatient (recurring) (ONCR) | payer MEDICARE, SELFPAY ==
[2024-04-10 10:40] LABS: Basophils # 0.1 10^3/uL (0.0-0.1); Basophils % 0.8 %; Eosinophils # 0.1 10^3/uL (0.0-0.8); Eosinophils % 1.3 %; Hematocrit 52.5 % (36-47); Lymphocytes # 2.4 10^3/uL (0.8-4.8); Lymphocytes % 28.4 %; Mean Corpuscular HGB Conc 33.1 g/dL (30-55); Mean Corpuscular Hemoglobin 29.2 pg (27-33); Mean Corpuscular Volume 88.2 fl (85-98); Mean Platelet Volume 8.9 fL (7.4-10.4); Monocytes # 0.7 10^3/uL (0.2-0.9); Monocytes % 8.6 %; Neutrophils # 5.07 10^3/uL (1.8-7.7); Neutrophils % 60.4 %; Nucleated Red Blood Cells % 0 %; Platelet Count 297 10^3/cmm (157-399); Red Blood Count 5.95 10^6/uL (3.85-5.65); Red Cell Distribution Width 16.8 % (12.1-15.1); White Blood Count 8.39 10^3/uL (3.29-11.43)
[2024-04-10 11:09] LABS: Alanine Aminotransferase 30 U/L (0-33); Albumin Level 4.4 g/dL (3.5-5.2); Alkaline Phosphatase 89 U/L (35-105); Blood Urea Nitrogen 14 mg/dL (8-23); Calcium 10.2 mg/dL (8.5-10.5); Carbon Dioxide 25 mmol/L (22-29); Chloride 104 mmol/L (98-107); Ferritin 55 ng/mL (15-150); Glomerular Filtration Rate 99.4 mL/min (90-130); Glucose 104 mg/dL (65-115); Iron 98 ug/dL (37-145); Osmolality Calculated 291 mOsm/kg (285-295); Sodium 140 mmol/L (136-145); Total Bilirubin 0.3 mg/dL (0.15-1.2); Total Protein 7.4 g/dL (6.6-8.7)
[2024-04-10 11:25] LABS: Anion Gap 15.6 (5-19); Aspartate Amino Transferase 33 U/L (0-32); Percent Saturation 25.6 % (20-50); Potassium 4.6 mmol/L (3.5-5.1); Total Iron Binding Capacity 382 mcg/dl; Unsaturated Iron Binding 284 ug/dL (112-347)
== END 2024-04-11 23:59 | disposition home or self-care (01) ==
PROVIDERS: Nurse Practitioner Family; PCP Family Medicine; Visit Provider Internal Medicine Hematology & Oncology
DX: Z53.9 Procedure and treatment not carried out, unspecified reason; D75.1 Secondary polycythemia; D50.8 Other iron deficiency anemias; Z79.899 Other long term (current) drug therapy; F17.210 Nicotine dependence, cigarettes, uncomplicated
CPT/HCPCS: 80053; 82728; 83540; 83550; 85025; 99195; 99215

== ENCOUNTER 2024-07-02 10:47 | Oncology outpatient (recurring) (ONCR) | payer MEDICAID, OTHER, SELFPAY ==
[2024-07-02 11:32] LABS: Basophils # 0.1 10^3/uL (0.0-0.1); Eosinophils # 0.1 10^3/uL (0.0-0.8); Eosinophils % 1.3 %; Hematocrit 51.7 % (36-47); Lymphocytes # 2.8 10^3/uL (0.8-4.8); Lymphocytes % 30.9 %; Mean Corpuscular HGB Conc 33.5 g/dL (30-55); Mean Corpuscular Hemoglobin 30.5 pg (27-33); Mean Corpuscular Volume 91.2 fl (85-98); Mean Platelet Volume 8.7 fL (7.4-10.4); Monocytes # 0.9 10^3/uL (0.2-0.9); Monocytes % 9.4 %; Neutrophils # 5.23 10^3/uL (1.8-7.7); Neutrophils % 57.1 %; Nucleated Red Blood Cells % 0 %; Platelet Count 287 10^3/cmm (157-399); Red Blood Count 5.67 10^6/uL (3.85-5.65); Red Cell Distribution Width 14.6 % (12.1-15.1); White Blood Count 9.16 10^3/uL (3.29-11.43)
[2024-07-02 11:49] LABS: Alanine Aminotransferase 24 U/L (0-33); Albumin Level 4.5 g/dL (3.5-5.2); Alkaline Phosphatase 80 U/L (35-105); Anion Gap 14.4 (5-19); Aspartate Amino Transferase 25 U/L (0-32); Blood Urea Nitrogen 15 mg/dL (8-23); Carbon Dioxide 26 mmol/L (22-29); Chloride 104 mmol/L (98-107); Globulin 2.8 g/dL (1.3-4.6); Glomerular Filtration Rate 83.2 mL/min (90-130); Glucose 101 mg/dL (65-115); Osmolality Calculated 291 mOsm/kg (285-295); Potassium 4.4 mmol/L (3.5-5.1); Sodium 140 mmol/L (136-145); Total Bilirubin 0.3 mg/dL (0.15-1.2); Total Protein 7.3 g/dL (6.6-8.7)
== END 2024-07-09 23:59 | disposition home or self-care (01) ==
PROVIDERS: Nurse Practitioner Family; PCP Family Medicine; Visit Provider Internal Medicine
DX: D75.1 Secondary polycythemia (principal); F17.210 Nicotine dependence, cigarettes, uncomplicated; R03.0 Elevated blood-pressure reading, without diagnosis of hypertension; Z79.899 Other long term (current) drug therapy
CPT/HCPCS: 36415; 80053; 85025; 99195; 99214

== ENCOUNTER → 2024-08-06 15:00 | Outpatient (BNVA) | payer OTHER, MEDICAID, SELFPAY | PROVIDERS: PCP Family Medicine; Visit Provider Internal Medicine | DX: I12.9 Hypertensive chronic kidney disease with stage 1 through stage 4 chronic kidney disease, or unspecified chronic kidney disease (principal); E11.22 Type 2 diabetes mellitus with diabetic chronic kidney disease; N18.9 Chronic kidney disease, unspecified; Z79.85 Long-term (current) use of injectable non-insulin antidiabetic drugs; E78.2 Mixed hyperlipidemia; J44.9 Chronic obstructive pulmonary disease, unspecified; Z79.82 Long term (current) use of aspirin; F17.210 Nicotine dependence, cigarettes, uncomplicated | CPT/HCPCS: 99213 ==

== ENCOUNTER 2024-10-08 13:26 | Oncology outpatient (recurring) (ONCR) | payer OTHER, MEDICAID, SELFPAY ==
[2024-10-08 14:10] LABS: Hematocrit 49.3 % (36-47); Hemoglobin 16.40 g/dL (11.27-16.99); Mean Corpuscular HGB Conc 33.3 g/dL (30-55); Mean Corpuscular Hemoglobin 30.4 pg (27-33); Mean Corpuscular Volume 91.3 fl (85-98); Nucleated Red Blood Cells % 0 %; Platelet Count 263 10^3/cmm (157-399); Red Blood Count 5.40 10^6/uL (3.85-5.65); White Blood Count 8.39 10^3/uL (3.29-11.43)
[2024-10-08 14:50] LABS: Alanine Aminotransferase 25 U/L (0-33); Albumin Level 4.2 g/dL (3.5-5.2); Alkaline Phosphatase 64 U/L (35-105); Anion Gap 14.1 (5-19); Aspartate Amino Transferase 27 U/L (0-32); Blood Urea Nitrogen 12 mg/dL (8-23); Calcium 9.6 mg/dL (8.5-10.5); Carbon Dioxide 30 mmol/L (22-29); Chloride 104 mmol/L (98-107); Creatinine Clr Calc Pharmacy 36.1168; Globulin 2.5 g/dL (1.3-4.6); Glucose 109 mg/dL (65-115); Osmolality Calculated 298 mOsm/kg (285-295); Potassium 4.1 mmol/L (3.5-5.1); Sodium 144 mmol/L (136-145); Total Protein 6.7 g/dL (6.6-8.7)
== END 2024-10-09 23:59 | disposition home or self-care (01) ==
PROVIDERS: Nurse Practitioner Family; PCP Family Medicine; Visit Provider Internal Medicine
DX: D75.1 Secondary polycythemia (principal); F17.210 Nicotine dependence, cigarettes, uncomplicated; Z71.6 Tobacco abuse counseling
CPT/HCPCS: 36415; 80053; 85025; 99213

== ENCOUNTER 2025-01-07 10:32 | Oncology outpatient (recurring) (ONCR) | payer MEDICARE, MEDICAID, SELFPAY ==
[2025-01-07 11:05] LABS: Hematocrit 47.8 % (36-47); Hemoglobin 15.60 g/dL (11.27-16.99); Mean Corpuscular HGB Conc 32.6 g/dL (30-55); Mean Corpuscular Hemoglobin 31.7 pg (27-33); Mean Corpuscular Volume 97.2 fl (85-98); Nucleated Red Blood Cells % 0 %; Platelet Count 259 10^3/cmm (157-399); Red Blood Count 4.92 10^6/uL (3.85-5.65); White Blood Count 8.13 10^3/uL (3.29-11.43)
[2025-01-07 11:28] LABS: Alanine Aminotransferase 25 U/L (0-33); Albumin Level 4.2 g/dL (3.5-5.2); Alkaline Phosphatase 67 U/L (35-105); Anion Gap 15.4 (5-19); Aspartate Amino Transferase 26 U/L (0-32); Blood Urea Nitrogen 11 mg/dL (8-23); Calcium 9.2 mg/dL (8.5-10.5); Carbon Dioxide 24 mmol/L (22-29); Chloride 106 mmol/L (98-107); Ferritin 42 ng/mL (15-150); Globulin 2.6 g/dL (1.3-4.6); Glucose 89 mg/dL (65-115); Iron 141 ug/dL (37-145); Osmolality Calculated 291 mOsm/kg (285-295); Potassium 4.4 mmol/L (3.5-5.1); Sodium 141 mmol/L (136-145); Total Iron Binding Capacity 395 mcg/dl; Total Protein 6.8 g/dL (6.6-8.7); Unsaturated Iron Binding 254 ug/dL (112-347)
== END 2025-01-09 23:59 | disposition home or self-care (01) ==
PROVIDERS: PCP Family Medicine; Visit Provider Internal Medicine
DX: D75.1 Secondary polycythemia (principal); F17.210 Nicotine dependence, cigarettes, uncomplicated; D50.8 Other iron deficiency anemias; F32.A Depression, unspecified; Z71.6 Tobacco abuse counseling; Z79.899 Other long term (current) drug therapy
CPT/HCPCS: 36415; 80053; 82728; 83540; 83550; 83615; 85025; 86140; 99214